=== PATIENT | male | born 1965 | race Caucasian/White ===

== ENCOUNTER 2023-10-05 14:56 | Observation (INO) ==
--- NOTE | 2023-10-05 15:11 | Emergency Department Note ---
Impression & Plan Near syncope, Dizziness, Acute hyperglycemia, Anemia, Elevated lactic acid level ED Provider Note NAME: DONNA RILEY AGE: 58 SEX: U : 1965 ARRIVES VIA: Walk-In INFORMANT: [Patient] ED PROVIDER(S): [Jamarcus Alvarado MD] CHIEF COMPLAINT: Near syncope, hyperglycemia HISTORY OF PRESENT ILLNESS: The patient is a 58-year-old male with diabetes. He has had a few days of cough and congestion and blood sugar readings that have been high. He has noticed some increased thirst and some increased urination. No fever. There has been no vomiting or diarrhea. The patient is in this area visiting someone admitted to this hospital. Patient is from [place]. A code purple was called as the patient was dizzy, lightheaded and complaining of some right upper chest pain. He felt like he might faint although there was no loss of consciousness. He describes the chest pain in the right upper chest underneath the collarbone. The patient was brought from the floor to this ER because of the complaints. PMHx/PSHx/Social Hx: See Below PHYSICAL EXAM: GENERAL: Patient is in no acute distress. HEENT: No acute trauma, normocephalic atraumatic, mucous membranes moist, no nasal congestion. NECK: No stridor, no adenopathy, no meningismus, trachea is midline. LUNGS: Clear to auscultation bilaterally, no wheeze, no rhonchi, breath sounds equal. Breath sounds are diminished bilaterally. HEART: Without murmurs gallops or rubs, regular rate and rhythm. ABDOMEN: Soft, nontender, no peritonitis. EXTREMITIES: No cyanosis, full range of motion of all the joints without pain or difficulty. NEUROLOGIC: Oriented x 3, no acute motor or sensory deficits, no focal weakness. SKIN: No jaundice, no diaphoresis. Rectal: Brown stool, heme-negative. DIFFERENTIAL DIAGNOSIS: Electrolyte imbalance, hyperglycemia, dehydration, UTI, dysrhythmia, MS, anemia, viral illness, among others. EMERGENCY DEPARTMENT PROCEDURES: MEDICAL DECISION MAKING: There is no leukocytosis. The patient is anemic with a hemoglobin of 8.7. I have no old values to use for comparison. Rectal exam was performed, stool was brown and heme-negative. There was a normal platelet count. VBG did not show any findings of acidosis. Renal panel testing did not show renal failure however, the glucose was high at over 400. Lactic acid level was elevated at 2.4, this elevation could be secondary to dehydration or potentially infection. No findings of liver enzyme elevation. The patient appeared to be in a euthyroid state. ECG showed a sinus rhythm with a right bundle branch block. No obvious ischemia. Cardiac enzyme testing x 1 is not consistent with acute cardiac injury. Urinalysis shows glucose, no obvious infection. COVID, influenza and RSV test were negative. Chest x-ray did not show pneumonia or CHF. On exam, the patient was resting comfortably, he did not appear in distress. The patient received IV insulin, 8 units. He was given 2 L of IV saline for hydration. A repeat troponin and repeat lactic acid are pending. A repeat glucose is pending. Currently, it appears the patient was near syncopal and dizzy secondary to dehydration, hyperglycemia and anemia. Certainly, dysrhythmia is a consideration as well. Given the patient's findings, given his presentation, I do think a hospital stay for further workup/care and cardiac monitoring is warranted. I spoke with the patient and case management, the on-call hospitalist was consulted. Prior/Outside records/notes reviewed: None ECG per my interpretation: Indication was near syncope. The ECG shows a sinus rhythm with a PVC. There is a right bundle branch block. The rate is 63. There is no concerning ST elevation, no PVCs. The QTc is 464. Continuous Cardiac Monitoring per my interpretation: An order was placed for continuous cardiac monitoring. The monitor shows a rate of 66 with normal sinus rhythm. Imaging/x-ray results per my interpretation: Chest x-ray does not show mediastinal widening, pneumonia or pneumothorax. Chronic Medical/Social conditions affecting care: Diabetes Care/Management discussed with: Level of care consideration(s): After review of the information above and other included data: --I believe the patient requires escalation of care to admission DISPOSITION: Admission Past Med/Surg History Medical History Diabetes mellitus Social History Smoking Status: Never smoker Feels Safe at Home: Yes Allergies Allergies Allergy/AdvReac Type Severity Reaction Status Date / Time No Known Allergies Allergy Unverified 10/05/23 16:51 Home Meds Home Medications Medication Instructions Recorded Confirmed apixaban 5 mg tablet (Eliquis) 5 mg PO BID 10/05/23 10/05/23 aspirin 81 mg chewable tablet 81 mg PO QAM 10/05/23 10/05/23 atorvastatin 40 mg tablet 40 mg PO HS 10/05/23 10/05/23 famotidine 20 mg tablet 20 mg PO HS 10/05/23 10/05/23 gabapentin 100 mg capsule 200 mg PO TID 10/05/23 10/05/23 insulin glargine 100 unit/mL (3 See Rx Instructions .Route .COMPLEX 10/05/23 10/05/23 mL) subcutaneous pen (Lantus Solostar U-100 Insulin) insulin lispro 100 unit/mL 12 unit subcut TID 10/05/23 10/05/23 subcutaneous pen levothyroxine 75 mcg tablet 75 mcg PO QAM 10/05/23 10/05/23 lisinopril 5 mg tablet 5 mg PO QAM 10/05/23 10/05/23 metformin 500 mg tablet,extended 1,000 mg PO BID 10/05/23 10/05/23 release 24 hr metoclopramide HCl 5 mg tablet 5 mg PO QID 10/05/23 10/05/23 pantoprazole 40 mg tablet,delayed 40 mg PO QAM 10/05/23 10/05/23 release sertraline 25 mg tablet 25 mg PO QAM 10/05/23 10/05/23 tamsulosin 0.4 mg capsule 0.4 mg PO DAILY 10/05/23 10/05/23 Results & Data (ED) Vital Signs Vital Signs - 24 hr 10/05/23 14:59 10/05/23 14:59 10/05/23 15:02 Temperature 37.1 C 37.1 C Temperature Source Oral Oral Pulse Rate 69 65 Pulse Rate [Apical] 66 Pulse Rate from SpO2 Sensor 66 Respiratory Rate 16 17 15 Blood Pressure 149/88 Blood Pressure [Right Arm] 149/88 Blood Pressure Mean 108 Blood Pressure Mean [Right Arm] 108 Pulse Oximetry 98 97 96 Oxygen Delivery Method Room Air Room Air Sepsis Recent Fever Within 48 Hours No Sepsis New/Unexplained Change in Mental Status No Sepsis Action Taken by Nursing No Action Required 10/05/23 15:13 10/05/23 15:30 10/05/23 16:00 Temperature Temperature Source Pulse Rate 72 83 69 Pulse Rate [Apical] Pulse Rate from SpO2 Sensor 82 70 Respiratory Rate 18 22 21 Blood Pressure Blood Pressure [Right Arm] Blood Pressure Mean Blood Pressure Mean [Right Arm] Pulse Oximetry 95 94 94 Oxygen Delivery Method Room Air Sepsis Recent Fever Within 48 Hours Sepsis New/Unexplained Change in Mental Status Sepsis Action Taken by Nursing 10/05/23 16:02 10/05/23 16:30 10/05/23 16:40 Temperature Temperature Source Pulse Rate 77 67 75 Pulse Rate [Apical] Pulse Rate from SpO2 Sensor 69 68 Respiratory Rate 24 21 Blood Pressure Blood Pressure [Right Arm] Blood Pressure Mean Blood Pressure Mean [Right Arm] Pulse Oximetry 96 96 Oxygen Delivery Method Sepsis Recent Fever Within 48 Hours Sepsis New/Unexplained Change in Mental Status Sepsis Action Taken by Nursing 10/05/23 16:40 10/05/23 17:00 10/05/23 17:00 Temperature Temperature Source Pulse Rate 70 Pulse Rate [Apical] Pulse Rate from SpO2 Sensor 70 Respiratory Rate 18 Blood Pressure 160/86 158/85 Blood Pressure [Right Arm] Blood Pressure Mean 126 108 Blood Pressure Mean [Right Arm] Pulse Oximetry 96 Oxygen Delivery Method Sepsis Recent Fever Within 48 Hours Sepsis New/Unexplained Change in Mental Status Sepsis Action Taken by [facility] Medications Current Medication List: was personally reviewed by me Laboratory Data Attestation: I reviewed the patient's lab results. 10/05/23 15:23 10/05/23 15:23 Lab Results 10/05/23 10/05/23 10/05/23 Range/Units 15:11 15:23 15:32 WBC 5.11 (4.8-10.8) K/ul RBC 3.97 L (4.20-6.10) M/uL Hgb 8.7 L (12.0-18.0) g/dl Hct 29.6 L (37.0-52.0) % MCV 74.6 L (80.0-100.0) fL MCH 21.9 L (25.0-34.0) pg MCHC 29.4 L (32.0-36.0) g/dL RDW Std Deviation 51.3 H (36.4-46.3) fL RDW Coeff of Bernadette 19.1 H (11.5-14.5) % Plt Count 145 (130-400) K/uL Immature Gran % (Auto) 0.0 % Neut % (Auto) 45.4 % Lymph % (Auto) 42.3 % Sanborn % (Auto) 7.0 % Eos % (Auto) 4.7 % Baso % (Auto) 0.6 % Neut # (Auto) 2.32 (1.40-6.50) K/uL Lymph # (Auto) 2.16 (1.20-3.40) K/uL Sanborn # (Auto) 0.36 (0.11-0.59) K/uL Eos # (Auto) 0.24 (0.00-0.50) K/uL Baso # (Auto) 0.03 (0.00-0.20) K/uL Immature Gran # (Auto) 0.00 L (0.01-0.20) K/uL VBG pH 7.37 (7.36-7.41) VBG pCO2 41 (38-50) mmHg VBG pO2 44 mmHg VBG HCO3 24 mmol/L VBG O2 Saturation 71.9 % VBG Base Excess -1.5 mEq/L Sodium 134 L (136-145) mmol/L Potassium 4.1 (3.5-5.1) mmol/L Chloride 103 (98-107) mmol/L Carbon Dioxide 23 (21-32) mmol/L Anion Gap 8 (3-11) BUN 21 (6-23) mg/dl Creatinine 1.06 (0.6-1.4) mg/dl Est Cr Clr Drug Dosing Not Reportable Est GFR ( Amer) 88.0 ml/min Est GFR (Non-Af Amer) 75.9 ml/min BUN/Creatinine Ratio 19.8 (10-20) Glucose 406 H* (70-99(Fasting)) mg/dl POC Glucose (70-99) mg/dl Lactate 2.4 H* (0.4-2.0) mmol/L Calcium 9.1 (8.6-10.3) mg/dl Magnesium 1.7 (1.7-2.4) mg/dl Total Bilirubin 0.3 (0.2-1.0) mg/dl AST 13 (13-39) U/L ALT 12 (7-52) U/L Alkaline Phosphatase 80 (34-104) U/L Troponin I High Sens 5.9 (0-20) pg/ml Total Protein 7.4 (6.0-8.3) gm/dl Albumin 4.0 (3.4-5.0) gm/dl Globulin 3.4 (2.5-4.0) gm/dl Albumin/Globulin Ratio 1.2 (0.9-2) TSH 3.944 (0.300-4.500) uIu/ml Urine Color Yellow Urine Appearance Clear (Clear) Urine pH 5.5 (4.5-7.5) Ur Specific Semora 1.031 H (1.000-1.030) Urine Protein Negative (Negative) Urine Glucose (UA) 3+ H (Negative) Urine Ketones Negative (Negative) Urine Blood Negative (Negative) Urine Nitrite Negative (Negative) Urine Bilirubin Negative (Negative) Urine Urobilinogen Negative (Negative) Ur Leukocyte Esterase Negative (Negative) SARS-CoV-2 (PCR) NEGATIVE (Negative) Influenza Type A (PCR) Negative (Neg) Influenza Type B (PCR) Negative (Neg) RSV (RT-PCR) Negative (Neg) 10/05/23 Range/Units 16:36 WBC (4.8-10.8) K/ul RBC (4.20-6.10) M/uL Hgb (12.0-18.0) g/dl Hct (37.0-52.0) % MCV (80.0-100.0) fL MCH (25.0-34.0) pg MCHC (32.0-36.0) g/dL RDW Std Deviation (36.4-46.3) fL RDW Coeff of Bernadette (11.5-14.5) % Plt Count (130-400) K/uL Immature Gran % (Auto) % Neut % (Auto) % Lymph % (Auto) % Sanborn % (Auto) % Eos % (Auto) % Baso % (Auto) % Neut # (Auto) (1.40-6.50) K/uL Lymph # (Auto) (1.20-3.40) K/uL Sanborn # (Auto) (0.11-0.59) K/uL Eos # (Auto) (0.00-0.50) K/uL Baso # (Auto) (0.00-0.20) K/uL Immature Gran # (Auto) (0.01-0.20) K/uL VBG pH (7.36-7.41) VBG pCO2 (38-50) mmHg VBG pO2 mmHg VBG HCO3 mmol/L VBG O2 Saturation % VBG Base Excess mEq/L Sodium (136-145) mmol/L Potassium (3.5-5.1) mmol/L Chloride (98-107) mmol/L Carbon Dioxide (21-32) mmol/L Anion Gap (3-11) BUN (6-23) mg/dl Creatinine (0.6-1.4) mg/dl Est Cr Clr Drug Dosing Est GFR ( Amer) ml/min Est GFR (Non-Af Amer) ml/min BUN/Creatinine Ratio (10-20) Glucose (70-99(Fasting)) mg/dl POC Glucose 420 H* (70-99) mg/dl Lactate (0.4-2.0) mmol/L Calcium (8.6-10.3) mg/dl Magnesium (1.7-2.4) mg/dl Total Bilirubin (0.2-1.0) mg/dl AST (13-39) U/L ALT (7-52) U/L Alkaline Phosphatase (34-104) U/L Troponin I High Sens (0-20) pg/ml Total Protein (6.0-8.3) gm/dl Albumin (3.4-5.0) gm/dl Globulin (2.5-4.0) gm/dl Albumin/Globulin Ratio (0.9-2) TSH (0.300-4.500) uIu/ml Urine Color Urine Appearance (Clear) Urine pH (4.5-7.5) Ur Specific Sem[place] (1.000-1.030) Urine Protein (Negative) Urine Glucose (UA) (Negative) Urine Ketones (Negative) Urine Blood (Negative) Urine Nitrite (Negative) Urine Bilirubin (Negative) Urine Urobilinogen (Negative) Ur Leukocyte Esterase (Negative) SARS-CoV-2 (PCR) (Negative) Influenza Type A (PCR) (Neg) Influenza Type B (PCR) (Neg) RSV (RT-PCR) (Neg) Administered Medications Discontinued Medications Sodium Chloride (Nss) 1,000 mls @ 999 mls/hr IV .Q1H1M ALIRIO Stop: 10/05/23 16:15 Last Infusion: 10/05/23 16:45 Dose: Infused Documented By: Admin: 10/05/23 15:30 Dose: 999 mls/hr Documented By: DARÍO Sodium Chloride (Nss) 1,000 mls @ 999 mls/hr IV .Q1H1M ONE Stop: 10/05/23 16:52 Last Admin: 10/05/23 16:36 Dose: 999 mls/hr Documented By: RUMA Insulin Human Regular (Novolin-R Insulin Per Unit Charge) 8 units IV NOW STA Stop: 10/05/23 16:17 Last Admin: 10/05/23 16:37 Dose: 8 units Documented By: RUMA Co-signed By: DARÍO Imaging Data Radiologist's Impression: Chest X-Ray 10/05/23 15:05 XR chest 1V portable CLINICAL HISTORY: weakness COMPARISON STUDY: No previous studies for comparison. FINDINGS: Lung volumes are normal. Lungs are clear. There is no pneumothorax or pleural effusion. Cardiac size is normal. Mediastinal contours are normal. There is no evidence for pulmonary edema. IMPRESSION: No acute cardiopulmonary findings. ACT 112: Negative or not required by law. Electronically signed by: Hunter Keene M.D. 10/05/2023 3:55 PM Discharge Plan Visit Data Chief Complaint: Hyperglycemia Stated Complaint: CODE PURPLE ED Provider: Jamarcus Alvarado Discharge Problem: Near syncope, Dizziness, Acute hyperglycemia, Anemia, Elevated lactic acid level Patient Disposition: Admitted As Inpatient Condition: Fair Forms Stand Alone Forms: My [facility] Knowledge Factor Prescriptions Prescriptions: No Action atorvastatin 40 mg tablet 40 mg PO HS levothyroxine 75 mcg tablet 75 mcg PO QAM famotidine 20 mg tablet 20 mg PO HS metoclopramide HCl 5 mg tablet 5 mg PO QID tamsulosin 0.4 mg capsule 0.4 mg PO DAILY pantoprazole 40 mg tablet,delayed release (DR/EC) 40 mg PO QAM sertraline 25 mg tablet 25 mg PO QAM aspirin 81 mg tablet,chewable 81 mg PO QAM lisinopril 5 mg tablet 5 mg PO QAM gabapentin 100 mg capsule 200 mg PO TID metformin 500 mg tablet extended release 24 hr 1,000 mg PO BID insulin lispro 100 unit/mL insulin pen 12 unit SUBCUT TID Rx Instructions: Before meals, if skipping a meal please skip that dose insulin glargine [Lantus Solostar U-100 Insulin] 100 unit/mL (3 mL) insulin pen See Rx Instructions .ROUTE .COMPLEX Rx Instructions: INJECT 25 units SUBCUTANEOUSLY IN THE MORNING and INJECT 45 Units SUBCUTANEOUSLY AT BEDTIME Eliquis 5 mg tablet 5 mg PO BID Referrals Referrals: PCP,NO [Primary Care Provider] - Discharge Problem: Anemia Qualifiers: Anemia type: unspecified type Qualified Code(s): D64.9 - Anemia, unspecified
[2023-10-05] MEDS: SODIUM CHLORIDE 0.9% 1,000 ML IV SCH ×2 (15:30→21:11)
[2023-10-05 15:42] LABS: Base Excess VBG -1.5 mEq/L; HCO3 VBG 24 mmol/L; Oxygen Saturation VBG 71.9 %; PCO2 VBG 41 mmHg (38-50); PO2 VBG 44 mmHg; pH VBG 7.37 (7.36-7.41)
[2023-10-05 15:44] LABS: Appearance Urine Clear (Clear); Bilirubin Urine Negative (Negative); Blood Urine Negative (Negative); Color Urine Yellow; Glucose Urine UA 3+ (Negative); Ketones Urine Negative (Negative); Leukocyte Esterase Urine Negative (Negative); Nitrite Urine Negative (Negative); Protein Urine Negative (Negative); Specific Gravity Urine 1.031 (1.000-1.030); Urobilinogen Urine Negative (Negative); pH Urine 5.5 (4.5-7.5)
[2023-10-05 15:56] LABS: Basophils # (auto) 0.03 K/uL (0.00-0.20); Basophils % (auto) 0.6 %; Eosinophils # (auto) 0.24 K/uL (0.00-0.50); Eosinophils % (auto) 4.7 %; Hematocrit (blood only) 29.6 % (37.0-52.0); Hemoglobin 8.7 g/dl (12.0-18.0); Lymphocytes # (auto) 2.16 K/uL (1.20-3.40); Lymphocytes % (auto) 42.3 %; Mean Corpuscular Hemoglobin 21.9 pg (25.0-34.0); Mean Corpuscular Hgb Conc 29.4 g/dL (32.0-36.0); Mean Corpuscular Volume 74.6 fL (80.0-100.0); Monocytes # (auto) 0.36 K/uL (0.11-0.59); Neutrophils # (auto) 2.32 K/uL (1.40-6.50); Neutrophils % (auto) 45.4 %; Platelet Count 145 K/uL (130-400); RDW Coefficient of Variation 19.1 % (11.5-14.5); RDW Standard Deviation 51.3 fL (36.4-46.3); Red Blood Count 3.97 M/uL (4.20-6.10); White Blood Count 5.11 K/ul (4.8-10.8)
--- NOTE | 2023-10-05 15:56 | XRay Report ---
XR chest 1V portable CLINICAL HISTORY: weakness COMPARISON STUDY: No previous studies for comparison. FINDINGS: Lung volumes are normal. Lungs are clear. There is no pneumothorax or pleural effusion. Car diac size is normal. Mediastinal contours are normal. There is no evidence for pulmonary edema. IMPRESSION: No acute cardiopulmonary findings. ACT 112: Negative or not required by law. Electronically signed by: Hunter Keene M.D. 10/05/2023 3:55 PM
[2023-10-05 16:20] LABS: Influenza A virus by PCR Negative (Neg); Influenza B virus by PCR Negative (Neg); RSV by PCR Negative (Neg); SARS CoV2 RNA(COVID-19) Ceph NEGATIVE (Negative)
[2023-10-05 16:30] LABS: Alanine Aminotransferase 12 U/L (7-52); Albumin Globulin Ratio 1.2 (0.9-2); Alkaline Phosphatase 80 U/L (34-104); Anion Gap 8 (3-11); Aspartate Aminotransferase 13 U/L (13-39); BUN Creatinine Ratio 19.8 (10-20); Bilirubin,Total 0.3 mg/dl (0.2-1.0); Blood Urea Nitrogen 21 mg/dl (6-23); Calcium 9.1 mg/dl (8.6-10.3); Carbon Dioxide 23 mmol/L (21-32); Chloride 103 mmol/L (98-107); Est GFR (Non-African American) 75.9 ml/min; Globulin 3.4 gm/dl (2.5-4.0); Glucose 406 mg/dl (70-99(Fasting)); Magnesium 1.7 mg/dl (1.7-2.4); Potassium 4.1 mmol/L (3.5-5.1); Sodium 134 mmol/L (136-145); Thyroid Stimulating Hormone 3.944 uIu/ml (0.300-4.500); Total Protein 7.4 gm/dl (6.0-8.3); Troponin I High Sensitivity 5.9 pg/ml (0-20)
[2023-10-05] MEDS: SODIUM CHLORIDE 0.9% 1,000 ML IV ONE (16:36)
[2023-10-05] MEDS: NovoLIN-R INSULIN PER UNIT CHARGE IV STA (16:37)
--- NOTE | 2023-10-05 18:00 | History & Physical Report ---
Date of Service October 05, 2023 Assessment & Plan (1) Acute hyperglycemia: Plan: This is a 58 y/o male with insulin-requiring DM2, dyslipidemia, hx of PE, now on chronic AC, anemia, hypothyroidism, GERD, BPH, adjustment disorder w/ depression, and other history as outlined below who presented to the ED today after a code purple was called on the floor. Initial work-up in the ED showed hyperglycemia, elevated lactate, and anemia. Outpatient records extensively reviewed - pt with multiple ED visits for hyperglycemia and various traumatic injuries in 2022 (>30 per outpatient records). Pt has a history of non- compliance with medications and was unable to remember his prescribed insulin regimen other than the Lantus. - Observe on med telemetry overnight - Basal/bolus insulin - A1c in AM (2) Near syncope: Plan: Suspect due to dehydration, hyperglycemia, and anemia but will evaluate for potential cardiac etiology. Trop x 2 negative. Last ECHO from outpatient records appears to be from 2019 and showed LVEF 55% - Will monitor on telemetry overnight - Repeat EKG in the AM - Update ECHO (3) Elevated lactic acid level: Plan: Improved on repeat labs - Continue IVF hydration - Holding Metformin (4) Anemia: Plan: Appears to be a chronic issue from review of chart although H&H has been slowly downtrending Will need outpatient follow-up for this - Labs in the AM to include repeat CBC, iron studies, B12, folic acid, retic count (5) Insulin-requiring or dependent type II diabetes mellitus: Plan: Last A1c from 04/21/23 was 14.2. Last visit with glycemic pharmacist, pt was prescribed Metformin ER 500 mg two tab BID, Lantus 25 units BID, and Humalog 25 units before each meal - Diabetic diet - Basal insulin per home regimen - Insulin sliding scale - A1c in the AM - Holding Metformin due to dehydration/elevated lactate (6) History of pulmonary embolus (PE): Plan: Pt denies any evidence of gross bleeding. Anemia appears to be a chronic issue per review of records - Continue apixaban due to history of PE (7) BPH loc w urin obs/LUTS: Plan: Chronic, stable - Continue tamsulosin (8) Dyslipidemia: Plan: Chronic, stable - Continue atorvastatin (9) Essential hypertension: Plan: BP in the ED elevated but suspect component of anxiety contributing as pt was very anxious and tearful - Continue lisinopril (10) Hypothyroidism: Plan: Chronic, TSH 3.944 today - Continue levothyroxine Plan Pt seen and reviewed with collaborating physician, Dr. Lee. Plan of care discussed and as outlined above. Code Status: full code DVT Prophylaxis: on chronic apixaban Asa Molina PA-C History of Present Illness Chief Complaint: near-syncope Primary Care Provider: NO PCP This is a 58 y/o male with insulin-requiring DM2, dyslipidemia, hx of PE, now on chronic AC, anemia, hypothyroidism, GERD, BPH, adjustment disorder w/ depression, and other history as outlined below who presented to the ED today after a code purple was called on the floor. Pt was visiting his sister when he apparently became very light-headed and had some right-sided chest pain. He was brought to the ED and found to be hyperglycemic with glucose >400. His chest pain has resolved, troponin x 2 was negative. Lactate was elevated, and pt clinically appeared dry so he was given two liters of IVF. Given 8 units of IV insulin, repeat sugar was 313. Pt's family report to the ED provider that pt has a history of medical non-compliance and that they aren't sure if patient is taking the insulin as prescribed. Due to the near-syncope, hyperglycemia, and dehydration, pt was referred for observation overnight. Pt reports that he is taking Lantus 25 units BID and is taking insulin with meals but unsure what dosing. He denies recent illness. Review of his outpatient records including PCP notes, multiple ED visit, and recent urgent care visit show ongoing issues with hyperglycemia, dizziness, and anemia. He does follow with glycemic pharmacist but there are some concerns about his compliance with recommendations. Last A1c in chart was from 04/21/23 and was 14.2. However, pt reports sugars usually only in the 200s at max. He has had lightheadedness with prior episodes of hyperglycemia. Allergies Allergy/AdvReac Type Severity Reaction Status Date / Time bee venom protein (honey bee) Allergy Difficulty Verified 10/05/23 17:50 Breathing Home Medications Medication Instructions Recorded Confirmed Type apixaban 5 mg tablet (Eliquis) 5 mg PO BID 10/05/23 10/05/23 History aspirin 81 mg chewable tablet 81 mg PO QAM 10/05/23 10/05/23 History atorvastatin 40 mg tablet 40 mg PO HS 10/05/23 10/05/23 History famotidine 20 mg tablet 20 mg PO HS 10/05/23 10/05/23 History gabapentin 100 mg capsule 200 mg PO TID 10/05/23 10/05/23 History insulin glargine 100 unit/mL (3 25 unit subcut BID 10/05/23 10/05/23 History mL) subcutaneous pen (Lantus Solostar U-100 Insulin) insulin lispro 100 unit/mL 20 unit subcut TID 10/05/23 10/05/23 History subcutaneous pen levothyroxine 75 mcg tablet 75 mcg PO QAM 10/05/23 10/05/23 History lisinopril 5 mg tablet 5 mg PO QAM 10/05/23 10/05/23 History metformin 500 mg tablet,extended 1,000 mg PO BID 10/05/23 10/05/23 History release 24 hr metoclopramide HCl 5 mg tablet 5 mg PO QID 10/05/23 10/05/23 History pantoprazole 40 mg tablet,delayed 40 mg PO QAM 10/05/23 10/05/23 History release sertraline 25 mg tablet 25 mg PO QAM 10/05/23 10/05/23 History tamsulosin 0.4 mg capsule 0.4 mg PO DAILY 10/05/23 10/05/23 History Past Med/Surg History Medical History (Updated 10/05/23 @ 19:14 by Mara Molina PA-C) History of pulmonary embolus (PE) GERD without esophagitis Adjustment disorder with depressed mood Atherosclerosis of [place] coronary artery Basic learning disability Dyslipidemia BPH loc w urin obs/LUTS Essential hypertension Gastroparesis due to DM Hypothyroidism Diabetes mellitus Surgical History S/P right inguinal hernia repair S/P cholecystectomy Family History Other Diabetes Heart disease Social History (System 10/05/23 @ 17:50 by Tsering Montelongo) Smoking Status: Never smoker Feels Safe at Home: Yes Review of Systems Review of Systems: All systems reviewed & are unremarkable except as noted in HPI & below Constitutional: no fever and no chills Eyes: no diplopia Ear, Nose, Mouth, Throat: no nasal congestion and no sore throat Respiratory: no cough and no dyspnea Cardiovascular: as per Subjective / HPI Gastrointestinal: no vomiting, no diarrhea/loose stools and no blood in stools Genitourinary: no dysuria or no hematuria Integumentary: no yellowing of the skin Neurologic: as per Subjective / HPI Psychiatric: + anxiety Physical Exam Physical Exam: General: awake, alert, NAD but tearful and anxious during encounter HEENT: no scleral icterus, moist oral mucosa Neck: trachea midline Heart: RRR, no M/G/R Lungs: CTA bilaterally, no W/R/R Abdomen: soft, NT, +BS Extremites: no pedal edema, distal pulses intact and equal Skin: +healed scar in RLQ without tenderness or erythema Neuro: Ox3, moving all extremities, no focal deficits Results & Data Results & Data Vital Signs (Past 12 Hours) Vital Signs Temp Pulse Pulse Resp BP BP Pulse Ox 10/05/23 17:00 158/85 10/05/23 17:00 70 18 96 10/05/23 16:40 160/86 10/05/23 16:40 75 21 96 10/05/23 16:30 67 24 96 10/05/23 16:02 77 10/05/23 16:00 69 21 94 10/05/23 15:30 83 22 94 10/05/23 15:13 72 18 95 10/05/23 15:02 65 15 96 10/05/23 14:59 37.1 C 66 17 149/88 97 10/05/23 14:59 37.1 C 69 16 149/88 98 O2 Del Method 10/05/23 17:00 10/05/23 17:00 10/05/23 16:40 10/05/23 16:40 10/05/23 16:30 10/05/23 16:02 10/05/23 16:00 10/05/23 15:30 10/05/23 15:13 Room Air 10/05/23 15:02 10/05/23 14:59 Room Air 10/05/23 14:59 Room Air Laboratory Results Laboratory Results - last 24 hr 10/05/23 10/05/23 10/05/23 15:11 15:23 15:32 WBC 5.11 RBC 3.97 L Hgb 8.7 L Hct 29.6 L MCV 74.6 L MCH 21.9 L MCHC 29.4 L RDW Std Deviation 51.3 H RDW Coeff of Bernadette 19.1 H Plt Count 145 Immature Gran % (Auto) 0.0 Neut % (Auto) 45.4 Lymph % (Auto) 42.3 Aurora % (Auto) 7.0 Eos % (Auto) 4.7 Baso % (Auto) 0.6 Neut # (Auto) 2.32 Lymph # (Auto) 2.16 Aurora # (Auto) 0.36 Eos # (Auto) 0.24 Baso # (Auto) 0.03 Immature Gran # (Auto) 0.00 L VBG pH 7.37 VBG pCO2 41 VBG pO2 44 VBG HCO3 24 VBG O2 Saturation 71.9 VBG Base Excess -1.5 Sodium 134 L Potassium 4.1 Chloride 103 Carbon Dioxide 23 Anion Gap 8 BUN 21 Creatinine 1.06 Est Cr Clr Drug Dosing Not Reportable Est GFR ( Amer) 88.0 Est GFR (Non-Af Amer) 75.9 BUN/Creatinine Ratio 19.8 Glucose 406 H* POC Glucose Lactate 2.4 H* Calcium 9.1 Magnesium 1.7 Total Bilirubin 0.3 AST 13 ALT 12 Alkaline Phosphatase 80 Troponin I High Sens 5.9 Total Protein 7.4 Albumin 4.0 Globulin 3.4 Albumin/Globulin Ratio 1.2 TSH 3.944 Urine Color Yellow Urine Appearance Clear Urine pH 5.5 Ur Specific [place] 1.031 H Urine Protein Negative Urine Glucose (UA) 3+ H Urine Ketones Negative Urine Blood Negative Urine Nitrite Negative Urine Bilirubin Negative Urine Urobilinogen Negative Ur Leukocyte Esterase Negative SARS-CoV-2 (PCR) NEGATIVE Influenza Type A (PCR) Negative Influenza Type B (PCR) Negative RSV (RT-PCR) Negative 10/05/23 10/05/23 10/05/23 16:36 17:21 17:24 WBC RBC Hgb Hct MCV MCH MCHC RDW Std Deviation RDW Coeff of Bernadette Plt Count Immature Gran % (Auto) Neut % (Auto) Lymph % (Auto) Aurora % (Auto) Eos % (Auto) Baso % (Auto) Neut # (Auto) Lymph # (Auto) Aurora # (Auto) Eos # (Auto) Baso # (Auto) Immature Gran # (Auto) VBG pH VBG pCO2 VBG pO2 VBG HCO3 VBG O2 Saturation VBG Base Excess Sodium Potassium Chloride Carbon Dioxide Anion Gap BUN Creatinine Est Cr Clr Drug Dosing Est GFR ( Amer) Est GFR (Non-Af Amer) BUN/Creatinine Ratio Glucose POC Glucose 420 H* 313 H* Lactate 2.1 H* Calcium Magnesium Total Bilirubin AST ALT Alkaline Phosphatase Troponin I High Sens 5.7 Total Protein Albumin Globulin Albumin/Globulin Ratio TSH Urine Color Urine Appearance Urine pH Ur Specific [place] Urine Protein Urine Glucose (UA) Urine Ketones Urine Blood Urine Nitrite Urine Bilirubin Urine Urobilinogen Ur Leukocyte Esterase SARS-CoV-2 (PCR) Influenza Type A (PCR) Influenza Type B (PCR) RSV (RT-PCR) Diagnostic Findings Chest X-Ray 10/05/23 15:05 XR chest 1V portable CLINICAL HISTORY: weakness COMPARISON STUDY: No previous studies for comparison. FINDINGS: Lung volumes are normal. Lungs are clear. There is no pneumothorax or pleural effusion. Cardiac size is normal. Mediastinal contours are normal. There is no evidence for pulmonary edema. IMPRESSION: No acute cardiopulmonary findings. ACT 112: Negative or not required by law. Electronically signed by: Hunter Keene M.D. 10/05/2023 3:55 PM Medications Administered Discontinued Medications Sodium Chloride (Nss) 1,000 mls @ 999 mls/hr IV .Q1H1M ALIRIO Stop: 10/05/23 16:15 Last Infusion: 10/05/23 16:45 Dose: Infused Documented By: Admin: 10/05/23 15:30 Dose: 999 mls/hr Documented By: DARÍO Sodium Chloride (Nss) 1,000 mls @ 999 mls/hr IV .Q1H1M ONE Stop: 10/05/23 16:52 Last Infusion: 10/05/23 17:54 Dose: Infused Documented By: Admin: 10/05/23 16:36 Dose: 999 mls/hr Documented By: RUMA Insulin Human Regular (Novolin-R Insulin Per Unit Charge) 8 units IV NOW STA Stop: 10/05/23 16:17 Last Admin: 10/05/23 16:37 Dose: 8 units Documented By: RUMA Co-signed By: DARÍO Supervising Physician Co-Signing Physician Notes I have seen and examined the patient and have discussed the case with the provider above. I have reviewed the advanced practitioner's documentation, and I agree with, and take responsibility for that plan of care. 58-year-old man with insulin-dependent diabetes presents with hyperglycemia and lightheadedness. Per history noted above he was visiting his sister who was hospitalized and became lightheaded with right-sided chest pain. Glucose is elevated into the 400s. Workup for ACS was negative and chest pain resolved. The patient reports that he feels stressed because of his sisters situation. He is now also stressed because he does not have a ride back home. He lives in the [facility] region around [facility]. Insulin was administered as noted above. Additional workup for presyncope including echo was ordered. On exam he is well-nourished well-developed and in no acute distress. BP is 164/106 pulse 63 respiration 26 and temp is 37.1. He is oxygenating well on room air. Lungs are clear to auscultation bilaterally. Cardiac exam is normal. He is mentating normally and has no gross focal neuromuscular deficits. Lab work does reveal a persistent and dropping H&H. Per outpatient record review he had a normal hemoglobin in April 2023 which began to drop from 12.9 baseline to then just above 9 and hemoglobin is now 8.7. He denies any active bleeding but has multiple visits to the ER is for laceration repairs. Patient's diabetes is uncontrolled. He has glucosuria on dipstick. No evidence of sepsis. He is on metformin and insulin at home. Agree with plan for lab workup of anemia in the morning continuing IV fluid hydration given elevated lactate and hyperglycemia and concentrated urine as well as echocardiogram and monitoring on telemetry overnight for presyncope. DO Jesus (4) Anemia Anemia type: unspecified type Qualified Code(s): D64.9 - Anemia, unspecified (10) Hypothyroidism Hypothyroidism type: acquired Qualified Code(s): E03.9 - Hypothyroidism, unspecified
[2023-10-05] MEDS ORDERED: CARBOHYDRATES FOR HYPOGLYCEMIA PO PRN (21:28)
[2023-10-05] MEDS ORDERED: GLUCOSE 40% GEL 15 GM TUBE PO PRN (21:28)
[2023-10-05] MEDS ORDERED: DEXTROSE 50% 50 ML SYRINGE IV PRN (21:28)
[2023-10-05] MEDS ORDERED: GLUCAGON FOR INJ 1 MG VIAL SQ PRN (21:28)
[2023-10-05] MEDS ORDERED: GLUCOSE 10 TAB/TUBE PO PRN (21:28)
--- OUTSIDE RECORDS SUMMARY | 2023-10-05 21:34 | External Medical Summary ---
Author Name Unknown Address Unknown Organization [id number]:[facility] [place] [address] [facility] [address] Laboratory Report Ordering Provider Test Date Status ABDIRAHMAN CHIN 06/07/2023 19:30:00 Final Observation Date Value Abnormality Reference (Units ) Status SYNC LEUKOCYTES IN BLOOD BY AUTOMATED COUNT 06/07/2023 19:30:00 6.18 4.00-10.80 (K/uL) Final Segs 06/07/2023 19:30:00 36.6 Below low normal 40.0-75.0 (%) Final Lymphs % 06/07/2023 19:30:00 47.6 Above high normal 18.0-42.0 (%) Final Monos 06/07/2023 19:30:00 8.9 1.0-11.0 (%) Final Eosinophils 06/07/2023 19:30:00 6.1 Above high normal 0.0-6.0 (%) Final Basos 06/07/2023 19:30:00 0.6 0.0-2.0 (%) Final Immature Granulocyte, Percent 06/07/2023 19:30:00 0.2 0.0-2.0 (%) Final Absolute Segs 06/07/2023 19:30:00 2.26 1.80-7.70 (K/uL) Final Lymphs, absolute 06/07/2023 19:30:00 2.94 1.00-4.80 (K/ul) Final Monos, Abs 06/07/2023 19:30:00 0.55 0.00-1.10 (K/uL) Final Eos, Abs 06/07/2023 19:30:00 0.38 0.00-0.70 (K/uL) Final Basos, Abs 06/07/2023 19:30:00 0.04 0.00-0.20 (K/uL) Final Immature Granulocytes, Number 06/07/2023 19:30:00 0.01 0.00-0.20 (K/uL) Final Performing Location [facility] [place] [facility] [place] [address]
--- OUTSIDE RECORDS SUMMARY | 2023-10-05 21:34 | External Medical Summary ---
Author Name Unknown Address Unknown Organization K0N:[place] [address] Laboratory Report Ordering Provider Test Date Status MEGAN HEALY 07/02/2023 14:04:16 Final Observation Date Value Abnormality Reference (Units ) Status [facility] WHITE BLOOD CELL COUNT 07/02/2023 14:04:16 4.6 4.0-10.5 (K/uL) Final [facility] RED BLOOD CELL COUNT 07/02/2023 14:04:16 3.40 Below low normal 4.70-6.00 Final Hemoglobin 07/02/2023 14:04:16 9.2 Below low normal 13.5-18 (g/dL) Final HCT 07/02/2023 14:04:16 28.1 Below low normal 42-52 (%) Final [facility] MEAN CORPUSCULAR VOLUME 07/02/2023 14:04:16 82.6 78.0-100.0 (fl) Final [facility] MCH 07/02/2023 14:04:16 27.0 27.0-31.0 (pg) Final [facility] MCHC 07/02/2023 14:04:16 32.7 32.5-36.0 (g/dL) Final [facility] RED CELL DIST WIDTH 07/02/2023 14:04:16 14.2 Above high normal 11.5-14.0 (%) Final [facility] PLATELET COUNT 07/02/2023 14:04:16 165 150-450 (K/uL) Final [facility] MPV 07/02/2023 14:04:16 10.0 Above high normal 6.5-9.5 (fL) [place] [address]
--- OUTSIDE RECORDS SUMMARY | 2023-10-05 21:34 | External Medical Summary ---
Author Name Unknown Address Unknown Organization [id number]:[facility] [place] [facility] [place] [address] [place] [address] Laboratory Report Ordering Provider Test Date Status ELSYABDIRAHMAN 06/07/2023 19:30:00 Final Observation Date Value Abnormality Reference (Units ) Status ABO 06/07/2023 19:30:00 O Final RH 06/07/2023 19:30:00 Positive Final RED BLOOD CELL ANTIBODY SCREEN 06/07/2023 19:30:00 Negative Final SPECIMEN EXPIRATION DATE 06/07/2023 19:30:00 06/10/2023 23:59 Final Performing Location [facility] [place] [facility] [place] [address] [address]
--- OUTSIDE RECORDS SUMMARY | 2023-10-05 21:34 | External Medical Summary ---
Author Name Unknown Address Unknown Organization : Laboratory Report Ordering Provider Test Date Status JENNIE CROWE 05/01/2023 11:48:53 Final Observation Date Value Abnormality Reference (Units ) Status Glucose Point of Care 05/01/2023 11:48:53 141 Above high normal 70-120 (mg/dL) Final Performing Location
--- OUTSIDE RECORDS SUMMARY | 2023-10-05 21:34 | External Medical Summary ---
Author Name Unknown Address Unknown Organization : Laboratory Report Ordering Provider Test Date Status JENNIE CROWE 05/02/2023 07:21:43 Final Observation Date Value Abnormality Reference (Units ) Status Glucose Point of Care 05/02/2023 07:21:43 274 Above high normal 70-120 (mg/dL) Final Performing Location
--- OUTSIDE RECORDS SUMMARY | 2023-10-05 21:34 | External Medical Summary ---
Author Name Unknown Address Unknown Organization : Laboratory Report Ordering Provider Test Date Status JENNIE CROWE 05/01/2023 07:45:35 Final Observation Date Value Abnormality Reference (Units ) Status Glucose Point of Care 05/01/2023 07:45:35 207 Above high normal 70-120 (mg/dL) Final Performing Location
--- OUTSIDE RECORDS SUMMARY | 2023-10-05 21:34 | External Medical Summary ---
Author Name Unknown Address Unknown Organization : Laboratory Report Ordering Provider Test Date Status JENNIE CROWE 04/29/2023 16:28:46 Final Observation Date Value Abnormality Reference (Units ) Status Glucose Point of Care 04/29/2023 16:28:46 180 Above high normal 70-120 (mg/dL) Final Performing Location
--- OUTSIDE RECORDS SUMMARY | 2023-10-05 21:34 | External Medical Summary ---
Author Name Unknown Address Unknown Organization K0N:[facility] [place] [address] Laboratory Report Ordering Provider Test Date Status MEGAN HEALY 07/02/2023 14:04:16 Final Observation Date Value Abnormality Reference (Units ) Status [facility] SODIUM 07/02/2023 14:04:16 137 135-146 (mmol/L) Final [facility] POTASSIUM 07/02/2023 14:04:16 4.4 3.5-5.1 (mmol/L) Final [facility] CHLORIDE 07/02/2023 14:04:16 101 98-107 (mmol/L) Final [facility] CO2 07/02/2023 14:04:16 21 Below low normal 22-32 (mmol/L) Final [facility] ANION GAP 07/02/2023 14:04:16 19 10-20 (mmol/L) Final [facility] BUN 07/02/2023 14:04:16 23 Above high normal 6-20 (mg/dL) Final [facility] CREATININE 07/02/2023 14:04:16 1.1 0.7-1.2 (mg/dL) Final [facility] ESTIMATED GLOMERULAR FILTRATION RATE 07/02/2023 14:04:16 77 Final [facility] BUN/CREATININE RATIO 07/02/2023 14:04:16 20.9 Above high normal 12.0-20.0 Final [facility] GLUCOSE 07/02/2023 14:04:16 496 Above upper panic limits 70-120 (mg/dL) Final [facility] CALCIUM 07/02/2023 14:04:16 9.7 8.4-10.2 (mg/dL) Final [facility] AST/SGOT 07/02/2023 14:04:16 14 10-50 (U/L) Final [facility] ALKALINE PHOSPHATASE 07/02/2023 14:04:16 84 50-153 (U/L) Final [facility] ALT/SGPT 07/02/2023 14:04:16 11 10-50 (U/L) Final [facility] BILIRUBIN, TOTAL 07/02/2023 14:04:16 0.30 0.00-1.20 (mg/dL) Final [facility] PROTEIN, TOTAL 07/02/2023 14:04:16 7.1 6.0-8.3 (g/dL) Final [facility] ALBUMIN 07/02/2023 14:04:16 3.9 3.8-5.0 (g/dL) Final [facility] GLOBULIN 07/02/2023 14:04:16 3.2 1.8-3.8 (g/dL) Final [facility] ALBUMIN/GLOBULIN RATIO 07/02/2023 14:04:16 1.2 1.0-2.4 [place] [address]
--- OUTSIDE RECORDS SUMMARY | 2023-10-05 21:34 | External Medical Summary ---
Author Name Unknown Address Unknown Organization K0X:LABORATORY [facility] - [address] [place] [address] [address] [place] [address] Laboratory Report Ordering Provider Test Date Status FLORENTINO ALCARAZ 08/09/2023 21:49:37 Final Observation Date Value Abnormality Reference (Units ) Status Color of Urine by Auto 08/09/2023 21:49:37 Yellow Light Yellow, Yellow, Dark Yellow Final Clarity, Urine 08/09/2023 21:49:37 Clear Clear Final Glucose [Mass/volume] in Urine by Automated test strip 08/09/2023 21:49:37 100 Abnormal Negative (mg/dL) Final Bilirubin.total [Presence] in Urine by Automated test strip 08/09/2023 21:49:37 Negative Negative Final Ketones [Mass/volume] in Urine by Automated test strip 08/09/2023 21:49:37 Negative Negative (mg/dL) Final Specific gravity, Urine 08/09/2023 21:49:37 1.023 1.003-1.030 Final Hemoglobin [Presence] in Urine by Automated test strip 08/09/2023 21:49:37 Negative Negative Final pH, Urine 08/09/2023 21:49:37 6.0 5.0-7.5 (Units) Final Protein [Mass/volume] in Urine by Automated test strip 08/09/2023 21:49:37 Negative Negative (mg/dL) Final Urobilinogen [Mass/volume] in Urine by Automated test strip 08/09/2023 21:49:37 0.2 0.2, 1.0 (mg/dL) Final Nitrite [Presence] in Urine by Automated test strip 08/09/2023 21:49:37 Negative Negative Final Leukocyte esterase [Presence] in Urine by Automated test strip 08/09/2023 21:49:37 Negative Negative Final RBC, Urine 08/09/2023 21:49:37 0-2 0-2 (/HPF) Final WBC, Urine 08/09/2023 21:49:37 0-2 0-2 (/HPF) Final Bacteria [#/area] in Urine sediment by Microscopy high power field 08/09/2023 21:49:37 0-25 0-25 (/HPF) Final CULTURE, URINE - [facility] 08/09/2023 21:49:37 Final Culture not indicated by uri nalysis results\[id number]\ Performing Location LAB[facility]ATORY [facility] - [address] [facility] [address]
--- OUTSIDE RECORDS SUMMARY | 2023-10-05 21:34 | External Medical Summary ---
Author Name Unknown Address Unknown Organization : Laboratory Report Ordering Provider Test Date Status JENNIE CROWE 04/30/2023 11:24:37 Final Observation Date Value Abnormality Reference (Units ) Status Glucose Point of Care 04/30/2023 11:24:37 199 Above high normal 70-120 (mg/dL) Final Performing Location
--- OUTSIDE RECORDS SUMMARY | 2023-10-05 21:34 | External Medical Summary ---
Author Name Unknown Address Unknown Organization K0X:LAB[facility]ATORY [facility] - [address] [place] [address] [address] [place] [address] Laboratory Report Ordering Provider Test Date Status FLORENTINO ALCARAZ 08/09/2023 20:45:00 Final Observation Date Value Abnormality Reference (Units ) Status BUN 08/09/2023 20:45:00 31 Above high normal 6-20 (mg/dL) Final Creatinine 08/09/2023 20:45:00 1.1 0.6-1.2 (mg/dL) Final Glomerular filtration rate/1.73 sq M.predicted [Volume Rate/Area] in Serum, Plasma or Blood by Creatinine-based formula (CKD-EPI) 08/09/2023 20:45:00 79 >=60 (mL/min) Final eGFR is calculated based on the CKD-EPI 2020 equation SODIUM 08/09/2023 20:45:00 137 135-146 (m mol/L) Final Potassium 08/09/2023 20:45:00 4.0 3.5-5.1 (m mol/L) Final Cl 08/09/2023 20:45:00 101 98-107 (mm ol/L) Final CO2 08/09/2023 20:45:00 24 22-32 (mmo l/L) Final Anion gap 08/09/2023 20:45:00 12 7-15 (mmol /L) Final Glucose 08/09/2023 20:45:00 235 Above high normal 70 -120 (mg/dL) Final Albumin 08/09/2023 20:45:00 4.0 3.8-5.0 (g /dL) Final AST (Aspartate aminotransferase) 08/09/2023 20:45:00 19 10-50 (U/L) Fin al Alk Phos 08/09/2023 20:45:00 84 35-130 (U/ L) Final Bilirubin, Total 08/09/2023 20:45:00 <0.2 <=1 .2 (mg/dL) Final Calcium 08/09/2023 20:45:00 10.0 8.4-10.2 ( mg/dL) Final Protein 08/09/2023 20:45:00 7.1 6.0-8.3 (g /dL) Final ALT (Alanine aminotransferase) 08/09/2023 20:45:00 16 10-50 (U/L) Jacob swan Performing Location LAB[facility]ORY [facility] - [address] [facility] [address]
--- OUTSIDE RECORDS SUMMARY | 2023-10-05 21:34 | External Medical Summary ---
Author Name Unknown Address Unknown Organization : Laboratory Report Ordering Provider Test Date Status NO,UNKNOWN 08/09/2023 18:55:40 Final Observation Date Value Abnormality Reference (Units ) Status Glucose Point of Care 08/09/2023 18:55:40 205 Above high normal 70-120 (mg/dL) Final Performing Location
--- OUTSIDE RECORDS SUMMARY | 2023-10-05 21:34 | External Medical Summary ---
Author Name Unknown Address Unknown Organization : Laboratory Report Ordering Provider Test Date Status JENNIE CROWE 04/29/2023 20:26:39 Final Observation Date Value Abnormality Reference (Units ) Status Glucose Point of Care 04/29/2023 20:26:39 177 Above high normal 70-120 (mg/dL) Final Performing Location
--- OUTSIDE RECORDS SUMMARY | 2023-10-05 21:34 | External Medical Summary ---
Author Name Unknown Address Unknown Organization : Laboratory Report Ordering Provider Test Date Status JENNIE CROWE 05/01/2023 20:26:21 Final Observation Date Value Abnormality Reference (Units ) Status Glucose Point of Care 05/01/2023 20:26:21 274 Above high normal 70-120 (mg/dL) Final Performing Location
--- OUTSIDE RECORDS SUMMARY | 2023-10-05 21:34 | External Medical Summary ---
Author Name Unknown Address Unknown Organization : Laboratory Report Ordering Provider Test Date Status JENNIE CROWE 04/30/2023 16:18:15 Final Observation Date Value Abnormality Reference (Units ) Status Glucose Point of Care 04/30/2023 16:18:15 140 Above high normal 70-120 (mg/dL) Final Performing Location
--- OUTSIDE RECORDS SUMMARY | 2023-10-05 21:34 | External Medical Summary ---
Author Name Unknown Address Unknown Organization [place] [address] Laboratory Report Ordering Provider Test Date Status DEFAULT,POCT 07/02/2023 17:46:28 Final Observation Date Value Abnormality Reference (Units ) Status [facility] GLUCOSE POC STAT STRIP 07/02/2023 17:46:28 269 Above high normal 70-110 (mg/dL) [place] [address]
--- OUTSIDE RECORDS SUMMARY | 2023-10-05 21:34 | External Medical Summary ---
Author Name Unknown Address Unknown Organization K0X:LABORATORY [address] [place] [address] Laboratory Report Ordering Provider Test Date Status FLORENTINO ALCARAZ 08/09/2023 20:45:00 Final Observation Date Value Abnormality Reference (Units ) Status WBC, Total 08/09/2023 20:45:00 5.89 4.00-10.80 (K/uL) Final RBC 08/09/2023 20:45:00 3.77 4.50-5.25 (M/uL) Final Hemoglobin 08/09/2023 20:45:00 8.8 Below low normal 14.0-16.8 (g/dL) Final HCT 08/09/2023 20:45:00 30.0 Below low normal 40.0-48.4 (%) Final MCV 08/09/2023 20:45:00 79.6 82.0-99.5 (fL) Final MCH 08/09/2023 20:45:00 23.3 27.0-34.0 (pg) Final MCHC 08/09/2023 20:45:00 29.3 32.0-36.0 (g/dL) Final RDW 08/09/2023 20:45:00 15.0 11.5-15.5 (%) Final Platelets 08/09/2023 20:45:00 168 140-400 (K/uL) Final MPV 08/09/2023 20:45:00 11.0 6.6-11.1 (fL) Final Nucleated erythrocytes/100 leukocytes [Ratio] in Blood by Automated count 08/09/2023 20:45:00 0 <=0 (/100 WBCs) Final Performing Location LABORATORY [address] [facility] [place] [address]
--- OUTSIDE RECORDS SUMMARY | 2023-10-05 21:34 | External Medical Summary ---
Author Name Unknown Address Unknown Organization K0N:[facility] [address], [place] [address] Laboratory Report Ordering Provider Test Date Status MEGAN HEALY 07/02/2023 14:04:16 Final Observation Date Value Abnormality Reference (Units ) Status [facility] NEUTROPHIL % - AUTO 07/02/2023 14:04:16 51.1 37.0-63.0 (%) Final [facility] LYMPHOCYTE % - AUTO 07/02/2023 14:04:16 36.8 33.0-37.0 (%) Final [facility] MONOCYTE % - AUTO 07/02/2023 14:04:16 6.8 0.0-9.0 (%) Final [facility] LAB EOSINOPHIL % - AUTO 07/02/2023 14:04:16 4.7 0.0-7.0 (%) Final [facility] BASOPHILS % - AUTO 07/02/2023 14:04:16 0.6 0.0-1.0 (%) Final [facility] NEUTROPHIL # - AUTO 07/02/2023 14:04:16 2.3 1.5-6.6 (K/uL) Final [facility] LAB LYMPHOCYTE # - AUTO 07/02/2023 14:04:16 1.7 1.5-3.5 (K/uL) Final [facility] MONOCYTE # - AUTO 07/02/2023 14:04:16 0.3 0.0-1.0 (K/uL) Final [facility] EOSINOPHIL # - AUTO 07/02/2023 14:04:16 0.2 0.0-0.7 (K/uL) Final [facility] BASOPHILS # - AUTO 07/02/2023 14:04:16 0.0 0.0-0.1 (K/uL) Final [facility] NRBC% AUTOMATED DIFFERENTIAL 07/02/2023 14:04:16 0.1 Above high normal <0.01 (%) Final [facility] LAB MONOCYTE DISTRUBUTION WIDTH (MDW) 07/02/2023 14:04:16 15.81 13.37-22.56 Final The MDW parameter is an Laureano y Sepsis Indicator (ESID) that only applies to Emergency Room patients between the ages of 18-89 years, on whom a complete blood count with automated differential was performed within two (2) hours after collection. MDW values greater than 20.0 together with other laboratory findings and clinical information, aids in identifying patients with sepsis or at increased risk of developing sepsis. Performing Location [place] [id number]
--- OUTSIDE RECORDS SUMMARY | 2023-10-05 21:34 | External Medical Summary ---
Author Name Unknown Address Unknown Organization : Laboratory Report Ordering Provider Test Date Status JENNIE CROWE 05/01/2023 16:43:50 Final Observation Date Value Abnormality Reference (Units ) Status Glucose Point of Care 05/01/2023 16:43:50 267 Above high normal 70-120 (mg/dL) Final Performing Location
--- OUTSIDE RECORDS SUMMARY | 2023-10-05 21:34 | External Medical Summary ---
Author Name Unknown Address Unknown Organization [place] [address] Laboratory Report Ordering Provider Test Date Status MEGAN HEALY 07/02/2023 14:04:16 Final Observation Date Value Abnormality Reference (Units ) Status [facility] BETA HYDROXYBUTYRATE 07/02/2023 14:04:16 0.10 0.02-0.27 (mmol/L) [place] [address]
--- OUTSIDE RECORDS SUMMARY | 2023-10-05 21:34 | External Medical Summary ---
Author Name Unknown Address Unknown Organization : Laboratory Report Ordering Provider Test Date Status JENNIE CROWE 04/30/2023 07:35:05 Final Observation Date Value Abnormality Reference (Units ) Status Glucose Point of Care 04/30/2023 07:35:05 166 Above high normal 70-120 (mg/dL) Final Performing Location
--- OUTSIDE RECORDS SUMMARY | 2023-10-05 21:34 | External Medical Summary ---
Author Name Unknown Address Unknown Organization [id number]:LAB[facility]ATORY [facility] - [facility] [address] [facility] [address] Laboratory Report Ordering Provider Test Date Status ABDIRAHMAN CHIN 06/07/2023 19:30:00 Final Observation Date Value Abnormality Reference (Units ) Status WBC, Total 06/07/2023 19:30:00 6.18 4.00-10.80 (K/uL) Final RBC 06/07/2023 19:30:00 3.74 4.50-5.25 (M/uL) Final Hemoglobin 06/07/2023 19:30:00 10.7 Below low normal 14.0-16.8 (g/dL) Final HCT 06/07/2023 19:30:00 34.9 Below low normal 40.0-48.4 (%) Final MCV 06/07/2023 19:30:00 93.3 82.0-99.5 (fL) Final MCH 06/07/2023 19:30:00 28.6 27.0-34.0 (pg) Final MCHC 06/07/2023 19:30:00 30.7 32.0-36.0 (g/dL) Final RDW 06/07/2023 19:30:00 12.4 11.5-15.5 (%) Final Platelets 06/07/2023 19:30:00 187 140-400 (K/uL) Final MPV 06/07/2023 19:30:00 11.6 6.6-11.1 (fL) Final Nucleated erythrocytes/100 leukocytes [Ratio] in Blood by Automated count 06/07/2023 19:30:00 0 <=0 (/100 WBCs) Final Performing Location LAB[facility]ORY [facility] - [address] [facility] [address]
--- OUTSIDE RECORDS SUMMARY | 2023-10-05 21:34 | External Medical Summary ---
Author Name Unknown Address Unknown Organization : Laboratory Report Ordering Provider Test Date Status JENNIE CROWE 04/30/2023 20:42:57 Final Observation Date Value Abnormality Reference (Units ) Status Glucose Point of Care 04/30/2023 20:42:57 109 70-120 (mg/dL) Final Performing Location
--- OUTSIDE RECORDS SUMMARY | 2023-10-05 21:34 | External Medical Summary ---
Author Name Unknown Address Unknown Organization K0X:LABORATORY [facility] - [address] [facility] [address] Laboratory Report Ordering Provider Test Date Status FLORENTINO ALCARAZ 08/09/2023 20:45:00 Final Observation Date Value Abnormality Reference (Units ) Status SYNC LEUKOCYTES IN BLOOD BY AUTOMATED COUNT 08/09/2023 20:45:00 5.89 4.00-10.80 (K/uL) Final Segs 08/09/2023 20:45:00 43.2 40.0-75.0 (%) Final Lymphs % 08/09/2023 20:45:00 41.4 18.0-42.0 (%) Final Monos 08/09/2023 20:45:00 7.5 1.0-11.0 (%) Final Eosinophils 08/09/2023 20:45:00 7.0 Above high normal 0.0-6.0 (%) Final Basos 08/09/2023 20:45:00 0.7 0.0-2.0 (%) Final Immature Granulocyte, Percent 08/09/2023 20:45:00 0.2 0.0-2.0 (%) Final Absolute Segs 08/09/2023 20:45:00 2.55 1.80-7.70 (K/uL) Final Lymphs, absolute 08/09/2023 20:45:00 2.44 1.00-4.80 (K/ul) Final Monos, Abs 08/09/2023 20:45:00 0.44 0.00-1.10 (K/uL) Final Eos, Abs 08/09/2023 20:45:00 0.41 0.00-0.70 (K/uL) Final Basos, Abs 08/09/2023 20:45:00 0.04 0.00-0.20 (K/uL) Final Immature Granulocytes, Number 08/09/2023 20:45:00 0.01 0.00-0.20 (K/uL) Final Performing Location LAB[facility] - [address] [facility] [address]
--- OUTSIDE RECORDS SUMMARY | 2023-10-05 21:34 | External Medical Summary ---
Author Name Unknown Address Unknown Organization : Laboratory Report Ordering Provider Test Date Status JENNIE CROWE 04/29/2023 12:40:17 Final Observation Date Value Abnormality Reference (Units ) Status Glucose Point of Care 04/29/2023 12:40:17 238 Above high normal 70-120 (mg/dL) Final Performing Location
--- OUTSIDE RECORDS SUMMARY | 2023-10-05 21:34 | External Medical Summary ---
Author Name Unknown Address Unknown Organization [id number]:LABORATORY [facility] - [address] [facility] [address] Laboratory Report Ordering Provider Test Date Status ABDIRAHMAN CHIN 06/07/2023 19:30:00 Final Observation Date Value Abnormality Reference (Units ) Status BUN 06/07/2023 19:30:00 11 6-20 (mg/dL) Final Creatinine 06/07/2023 19:30:00 1.0 0.6-1.2 (mg/dL) Final Glomerular filtration rate/1.73 sq M.predicted [Volume Rate/Area] in Serum, Plasma or Blood by Creatinine-based formula (CKD-EPI) 06/07/2023 19:30:00 >90 >=60 (mL/min) Final eGFR is calculated based on the CKD-EPI 2020 equation SODIUM 06/07/2023 19:30:00 135 135-146 (m mol/L) Final Potassium 06/07/2023 19:30:00 3.7 3.5-5.1 (m mol/L) Final Cl 06/07/2023 19:30:00 100 98-107 (mm ol/L) Final CO2 06/07/2023 19:30:00 22 22-32 (mmo l/L) Final Anion gap 06/07/2023 19:30:00 13 7-15 (mmol /L) Final Glucose 06/07/2023 19:30:00 400 Above high normal 70 -120 (mg/dL) Final Albumin 06/07/2023 19:30:00 4.0 3.8-5.0 (g /dL) Final AST (Aspartate aminotransferase) 06/07/2023 19:30:00 32 10-50 (U/L) Fin al Alk Phos 06/07/2023 19:30:00 72 35-130 (U/ L) Final Bilirubin, Total 06/07/2023 19:30:00 0.4 <=1 .2 (mg/dL) Final Calcium 06/07/2023 19:30:00 8.8 8.4-10.2 ( mg/dL) Final Protein 06/07/2023 19:30:00 7.0 6.0-8.3 (g /dL) Final ALT (Alanine aminotransferase) 06/07/2023 19:30:00 23 10-50 (U/L) Jacob swan Performing Location LABORATORY [facility] - [facility] [address] [facility] [address]
--- OUTSIDE RECORDS SUMMARY | 2023-10-05 21:35 | External Medical Summary ---
Author Name Unknown Address Unknown Organization K01:LABORATORY [facility] [place] - [address] [place] [address] Laboratory Report Ordering Provider Test Date Status AYUSHDIDIERSATHYA 04/28/2023 13:06:00 Final Deficient: <20 ng/mL
Ins ufficient: 20-29 ng/mL
Recommended/Optimum:30-50 ng/mL

Vitamin D intoxication is rare. If suspicious of Vitamin D toxicity, evaluation of serum Calcium and PTH is recommended. Observation Date Value Abnormality Reference (Units ) Status 25-OH Vitamin D total 04/28/2023 13:06:00 34 >19 (ng/mL) Final Performing Location LABORATORY [facility] [place] - [address] [place] [address]
--- OUTSIDE RECORDS SUMMARY | 2023-10-05 21:35 | External Medical Summary ---
Author Name Unknown Address Unknown Organization : Laboratory Report Ordering Provider Test Date Status GREYSON JARAMILLO 04/28/2023 13:29:23 Final Observation Date Value Abnormality Reference (Units ) Status Glucose Point of Care 04/28/2023 13:29:23 286 Above high normal 70-120 (mg/dL) Final Performing Location
--- OUTSIDE RECORDS SUMMARY | 2023-10-05 21:35 | External Medical Summary ---
Author Name Unknown Address Unknown Organization : Laboratory Report Ordering Provider Test Date Status OBEY RUTLEDGE 04/21/2023 16:55:49 Final Observation Date Value Abnormality Reference (Units ) Status Glucose Point of Care 04/21/2023 16:55:49 159 Above high normal 70-120 (mg/dL) Final Performing Location
--- OUTSIDE RECORDS SUMMARY | 2023-10-05 21:35 | External Medical Summary ---
Author Name Unknown Address Unknown Organization : Laboratory Report Ordering Provider Test Date Status ARMANDO SALINAS 04/25/2023 17:25:46 Final Observation Date Value Abnormality Reference (Units ) Status Glucose Point of Care 04/25/2023 17:25:46 240 Above high normal 70-120 (mg/dL) Final Performing Location
--- OUTSIDE RECORDS SUMMARY | 2023-10-05 21:35 | External Medical Summary ---
Author Name Unknown Address Unknown Organization K01:LABORATORY [facility] - [address] [facility] [address] [facility] [address] Laboratory Report Ordering Provider Test Date Status NOLA HILARIO 04/22/2023 09:36:00 Final Observation Date Value Abnormality Reference (Units ) Status Lactic Acid 04/22/2023 09:36:00 2.4 Above high normal 0.4-2.0 (mmol/L) Final Performing Location LABORATORY [facility] - [address] [facility] [address]
--- OUTSIDE RECORDS SUMMARY | 2023-10-05 21:35 | External Medical Summary ---
Author Name Unknown Address Unknown Organization : Laboratory Report Ordering Provider Test Date Status OBEY RUTLEDGE 04/22/2023 20:51:06 Final Observation Date Value Abnormality Reference (Units ) Status Glucose Point of Care 04/22/2023 20:51:06 232 Above high normal 70-120 (mg/dL) Final Performing Location
--- OUTSIDE RECORDS SUMMARY | 2023-10-05 21:35 | External Medical Summary ---
Author Name Unknown Address Unknown Organization K01:LABORATORY [facility] - [address] [facility] [address] [facility] [address] Laboratory Report Ordering Provider Test Date Status NOLA HILARIO 04/23/2023 07:48:00 Final Observation Date Value Abnormality Reference (Units ) Status Phosphate 04/23/2023 07:48:00 2.7 2.5-4.8 (m g/dL) Final Performing Location LAB[facility]ATORY [facility] - [address] [facility] [address]
--- OUTSIDE RECORDS SUMMARY | 2023-10-05 21:35 | External Medical Summary ---
Author Name Unknown Address Unknown Organization K01:LABORATORY [facility] [place] - [address] [facility] [address] Laboratory Report Ordering Provider Test Date Status NOLA HILARIO DELONTE 04/22/2023 09:36:00 Final Observation Date Value Abnormality Reference (Units ) Status BUN 04/22/2023 09:36:00 16 6-20 (mg/dL) Final Creatinine 04/22/2023 09:36:00 0.9 0.6-1.2 (mg/dL) Final Glomerular filtration rate/1.73 sq M.predicted [Volume Rate/Area] in Serum, Plasma or Blood by Creatinine-based formula (CKD-EPI) 04/22/2023 09:36:00 >90 >=60 (mL/min) Final eGFR is calculated based on the CKD-EPI 2020 equation SODIUM 04/22/2023 09:36:00 136 135-146 (m mol/L) Final Potassium 04/22/2023 09:36:00 4.6 3.5-5.1 (m mol/L) Final Cl 04/22/2023 09:36:00 102 98-107 (mm ol/L) Final CO2 04/22/2023 09:36:00 23 22-32 (mmo l/L) Final Anion gap 04/22/2023 09:36:00 11 7-15 (mmol /L) Final Glucose 04/22/2023 09:36:00 385 Above high normal 70 -120 (mg/dL) Final Calcium 04/22/2023 09:36:00 8.4 8.4-10.2 ( mg/dL) Final Performing Location LABORATORY [facility] - [address] [place] [address]
--- OUTSIDE RECORDS SUMMARY | 2023-10-05 21:35 | External Medical Summary ---
Author Name Unknown Address Unknown Organization : Laboratory Report Ordering Provider Test Date Status ARMANDO SALINAS 04/23/2023 17:34:37 Final Observation Date Value Abnormality Reference (Units ) Status Glucose Point of Care 04/23/2023 17:34:37 125 Above high normal 70-120 (mg/dL) Final Performing Location
--- OUTSIDE RECORDS SUMMARY | 2023-10-05 21:35 | External Medical Summary ---
Author Name Unknown Address Unknown Organization K01:LABORATORY [facility] - [address] [facility] [address] Laboratory Report Ordering Provider Test Date Status NOLA HILARIO DELONTE 04/23/2023 07:48:00 Final Observation Date Value Abnormality Reference (Units ) Status BUN 04/23/2023 07:48:00 17 6-20 (mg/dL) Final Creatinine 04/23/2023 07:48:00 0.9 0.6-1.2 (mg/dL) Final Glomerular filtration rate/1.73 sq M.predicted [Volume Rate/Area] in Serum, Plasma or Blood by Creatinine-based formula (CKD-EPI) 04/23/2023 07:48:00 >90 >=60 (mL/min) Final eGFR is calculated based on the CKD-EPI 2020 equation SODIUM 04/23/2023 07:48:00 137 135-146 (m mol/L) Final Potassium 04/23/2023 07:48:00 4.4 3.5-5.1 (m mol/L) Final Cl 04/23/2023 07:48:00 104 98-107 (mm ol/L) Final CO2 04/23/2023 07:48:00 26 22-32 (mmo l/L) Final Anion gap 04/23/2023 07:48:00 7 7-15 (mmol /L) Final Glucose 04/23/2023 07:48:00 276 Above high normal 70 -120 (mg/dL) Final Calcium 04/23/2023 07:48:00 8.9 8.4-10.2 ( mg/dL) Final Performing Location LABORATORY [facility] - [address] [place] [address]
--- OUTSIDE RECORDS SUMMARY | 2023-10-05 21:35 | External Medical Summary ---
Author Name Unknown Address Unknown Organization : Laboratory Report Ordering Provider Test Date Status NO,UNKNOWN 04/27/2023 13:19:27 Final Observation Date Value Abnormality Reference (Units ) Status Glucose Point of Care 04/27/2023 13:19:27 139 Above high normal 70-120 (mg/dL) Final Performing Location
--- OUTSIDE RECORDS SUMMARY | 2023-10-05 21:35 | External Medical Summary ---
Author Name Unknown Address Unknown Organization K01:LABORATORY [facility] [place] - [address] [facility] [address] Laboratory Report Ordering Provider Test Date Status NOLA HILARIO DELONTE 04/24/2023 08:46:00 Final Observation Date Value Abnormality Reference (Units ) Status WBC, Total 04/24/2023 08:46:00 4.25 4.00-10.80 (K/uL) Final RBC 04/24/2023 08:46:00 3.94 4.50-5.25 (M/uL) Final Hemoglobin 04/24/2023 08:46:00 11.7 Below low normal 14.0-16.8 (g/dL) Final HCT 04/24/2023 08:46:00 35.3 Below low normal 40.0-48.4 (%) Final MCV 04/24/2023 08:46:00 89.6 82.0-99.5 (fL) Final MCH 04/24/2023 08:46:00 29.7 27.0-34.0 (pg) Final MCHC 04/24/2023 08:46:00 33.1 32.0-36.0 (g/dL) Final RDW 04/24/2023 08:46:00 12.3 11.5-15.5 (%) Final Platelets 04/24/2023 08:46:00 123 Below low normal 140-400 (K/uL) Final MPV 04/24/2023 08:46:00 12.7 6.6-11.1 (fL) Final Nucleated erythrocytes/100 leukocytes [Ratio] in Blood by Automated count 04/24/2023 08:46:00 0 <=0 (/100 WBCs) Final Performing Location LABORATORY [facility] [place] - [address] [place] [address]
--- OUTSIDE RECORDS SUMMARY | 2023-10-05 21:35 | External Medical Summary ---
Author Name Unknown Address Unknown Organization K01:LAB[facility]ATORY [facility] - [address] [facility] [address] [facility] [address] Laboratory Report Ordering Provider Test Date Status DERIK JEAN 04/25/2023 11:08:00 Final Observation Date Value Abnormality Reference (Units ) Status Troponin T 04/25/2023 11:08:00 15 <=22 (ng/ L) Final Performing Location LABORATORY [facility] - [address] [facility] [address]
--- OUTSIDE RECORDS SUMMARY | 2023-10-05 21:35 | External Medical Summary ---
Author Name Unknown Address Unknown Organization K01:LABORATORY [facility] [place] - [address] [facility] [address] Laboratory Report Ordering Provider Test Date Status GREYSON JARAMILLO 04/28/2023 13:37:19 Final RAPID SURVEILLANCE Observation Date Value Abnormality Reference (Units ) Status SARS Coronavirus 2 04/28/2023 13:37:19 Negative N egative Final 2019 Novel Coronavirus not d etected.

This express test was developed and its performance characteristics determined by [facility]. It has not been cleared or approved by the U.S. Food and Drug Administration (FDA). FDA does not require this test to go thru premarket FDA review. This test is used for clinical purposes. It should not be regarded as investigational or for research. This laboratory is certified under the Clinical Laboratory Improvement Amendments (CLIA) as qualified to perform high complexity clinical laboratory testing.

This test is a nucleic acid amplification test (NAAT), a reverse transcriptase polymerase chain reaction (RT-PCR) test, or a Centers for Disease Control-acceptable equivalent. The test is performed in a high complexity Clinical Laboratory Improvement Amendments-(CLIA) certified laboratory. The test is acceptable for SARS-CoV-2 diagnosis, surveillance, and travel within the [place] and to most countries. Please check with local testing authorities about requirements before travel.

The validation of bronchial specimens, tracheal aspirates, and sputum for this assay was developed and performance characteristics determined by [facility]. The validation of alternate specimen types has not been cleared or approved by the U.S. Food and Drug Administration (FDA). It has been determined that such clearance is not necessary. Performing Location LABORATORY [facility] [place] - [facility] [address] [facility] [address]
--- OUTSIDE RECORDS SUMMARY | 2023-10-05 21:35 | External Medical Summary ---
Author Name Unknown Address Unknown Organization K01:LABORATORY [facility] [place] - [address] [facility] [address] Laboratory Report Ordering Provider Test Date Status NOLA HILARIO 04/21/2023 17:57:00 Final Observation Date Value Abnormality Reference (Units ) Status Lactic Acid 04/21/2023 17:57:00 1.4 0.4-2.0 (mmol/L) Final Performing Location LABORATORY [facility] - [address] [facility] [address]
--- OUTSIDE RECORDS SUMMARY | 2023-10-05 21:35 | External Medical Summary ---
Author Name Unknown Address Unknown Organization K01:LABORATORY C - [address] [facility] [place] [facility] [address] Laboratory Report Ordering Provider Test Date Status NOLA HILARIO 04/23/2023 07:48:00 Final Observation Date Value Abnormality Reference (Units ) Status Magnesium 04/23/2023 07:48:00 2.0 1.5-2.6 (m g/dL) Final Performing Location [facility] - [address] [facility] [address]
--- OUTSIDE RECORDS SUMMARY | 2023-10-05 21:35 | External Medical Summary ---
Author Name Unknown Address Unknown Organization : Laboratory Report Ordering Provider Test Date Status OBEY RUTLEDGE 04/22/2023 16:35:23 Final Observation Date Value Abnormality Reference (Units ) Status Glucose Point of Care 04/22/2023 16:35:23 108 70-120 (mg/dL) Final Performing Location
--- OUTSIDE RECORDS SUMMARY | 2023-10-05 21:35 | External Medical Summary ---
Author Name Unknown Address Unknown Organization K01:[facility]ORY [facility] [place] [address] [facility] [place]. [facility] [address] Laboratory Report Ordering Provider Test Date Status NOLA HILARIO 04/22/2023 09:36:00 Final Observation Date Value Abnormality Reference (Units ) Status Magnesium 04/22/2023 09:36:00 2.0 1.5-2.6 (m g/dL) Final Performing Location LAB[facility]ATORY [facility] - [address] [facility] [address]
--- OUTSIDE RECORDS SUMMARY | 2023-10-05 21:35 | External Medical Summary ---
Author Name Unknown Address Unknown Organization : Laboratory Report Ordering Provider Test Date Status GREYSON JARAMILLO 04/28/2023 18:16:31 Final Observation Date Value Abnormality Reference (Units ) Status Glucose Point of Care 04/28/2023 18:16:31 315 Above high normal 70-120 (mg/dL) Final Performing Location
--- OUTSIDE RECORDS SUMMARY | 2023-10-05 21:35 | External Medical Summary ---
Author Name Unknown Address Unknown Organization : Laboratory Report Ordering Provider Test Date Status ARMANDO SALINAS 04/23/2023 07:31:51 Final Observation Date Value Abnormality Reference (Units ) Status Glucose Point of Care 04/23/2023 07:31:51 220 Above high normal 70-120 (mg/dL) Final Performing Location
--- OUTSIDE RECORDS SUMMARY | 2023-10-05 21:35 | External Medical Summary ---
Author Name Unknown Address Unknown Organization K01:LABORATORY [facility] [place] - [facility] [address] Laboratory Report Ordering Provider Test Date Status NOLA HILARIO DELONTE 04/23/2023 07:48:00 Final Observation Date Value Abnormality Reference (Units ) Status WBC, Total 04/23/2023 07:48:00 5.06 4.00-10.80 (K/uL) Final RBC 04/23/2023 07:48:00 3.92 4.50-5.25 (M/uL) Final Hemoglobin 04/23/2023 07:48:00 11.7 Below low normal 14.0-16.8 (g/dL) Final HCT 04/23/2023 07:48:00 36.3 Below low normal 40.0-48.4 (%) Final MCV 04/23/2023 07:48:00 92.6 82.0-99.5 (fL) Final MCH 04/23/2023 07:48:00 29.8 27.0-34.0 (pg) Final MCHC 04/23/2023 07:48:00 32.2 32.0-36.0 (g/dL) Final RDW 04/23/2023 07:48:00 12.4 11.5-15.5 (%) Final Platelets 04/23/2023 07:48:00 122 Below low normal 140-400 (K/uL) Final MPV 04/23/2023 07:48:00 12.3 6.6-11.1 (fL) Final Nucleated erythrocytes/100 leukocytes [Ratio] in Blood by Automated count 04/23/2023 07:48:00 0 <=0 (/100 WBCs) Final Performing Location LABORATORY [facility] - [address] [place] [address]
--- OUTSIDE RECORDS SUMMARY | 2023-10-05 21:35 | External Medical Summary ---
Author Name Unknown Address Unknown Organization K01:LABORATORY C - [address] [facility] [address] Laboratory Report Ordering Provider Test Date Status CASSI JARAMILLOAF 04/28/2023 13:06:00 Final Observation Date Value Abnormality Reference (Units ) Status Ethanol 04/28/2023 13:06:00 Negative Negative Final Performing Location LABORATORY C - [address] [facility] [address]
--- OUTSIDE RECORDS SUMMARY | 2023-10-05 21:35 | External Medical Summary ---
Author Name Unknown Address Unknown Organization K01:LABORATORY [facility] [place] - [address] [facility] [address] [facility] [address] Laboratory Report Ordering Provider Test Date Status NOLA HILARIO 04/22/2023 09:36:00 Final Observation Date Value Abnormality Reference (Units ) Status Phosphate 04/22/2023 09:36:00 2.4 Below low normal 2.5 -4.8 (mg/dL) Final Performing Location LAB[facility]ATORY [facility] - [address] [facility] [address]
--- OUTSIDE RECORDS SUMMARY | 2023-10-05 21:35 | External Medical Summary ---
Author Name Unknown Address Unknown Organization K01:LABORATORY C - [address] [facility] [place] [facility] [address] Laboratory Report Ordering Provider Test Date Status NOLA HILARIO 04/24/2023 08:46:00 Final Observation Date Value Abnormality Reference (Units ) Status Magnesium 04/24/2023 08:46:00 1.8 1.5-2.6 (m g/dL) Final Performing Location [facility]ORY [facility] - [address] [facility] [address]
--- OUTSIDE RECORDS SUMMARY | 2023-10-05 21:35 | External Medical Summary ---
Author Name Unknown Address Unknown Organization : Laboratory Report Ordering Provider Test Date Status ARMANDO SALINAS 04/24/2023 16:45:35 Final Observation Date Value Abnormality Reference (Units ) Status Glucose Point of Care 04/24/2023 16:45:35 300 Above high normal 70-120 (mg/dL) Final Performing Location
--- OUTSIDE RECORDS SUMMARY | 2023-10-05 21:35 | External Medical Summary ---
Author Name Unknown Address Unknown Organization K01:LABORATORY [facility] [place] - [address] [facility] [facility] [address] Laboratory Report Ordering Provider Test Date Status NOLA HILARIO 04/23/2023 09:35:00 Final Observation Date Value Abnormality Reference (Units ) Status Troponin T 04/23/2023 09:35:00 13 <=22 (ng/ L) Final Performing Location LABORATORY [facility] - [address] [facility] [address]
--- OUTSIDE RECORDS SUMMARY | 2023-10-05 21:35 | External Medical Summary ---
Author Name Unknown Address Unknown Organization K01:LABORATORY [facility] [place] - [address] [facility] [address] [facility] [address] Laboratory Report Ordering Provider Test Date Status NOLA HILARIO DELONTE 04/24/2023 08:46:00 Final Observation Date Value Abnormality Reference (Units ) Status BUN 04/24/2023 08:46:00 17 6-20 (mg/dL) Final Creatinine 04/24/2023 08:46:00 0.8 0.6-1.2 (mg/dL) Final Glomerular filtration rate/1.73 sq M.predicted [Volume Rate/Area] in Serum, Plasma or Blood by Creatinine-based formula (CKD-EPI) 04/24/2023 08:46:00 >90 >=60 (mL/min) Final eGFR is calculated based on the CKD-EPI 2020 equation SODIUM 04/24/2023 08:46:00 142 135-146 (m mol/L) Final Potassium 04/24/2023 08:46:00 3.8 3.5-5.1 (m mol/L) Final Cl 04/24/2023 08:46:00 107 98-107 (mm ol/L) Final CO2 04/24/2023 08:46:00 25 22-32 (mmo l/L) Final Anion gap 04/24/2023 08:46:00 10 7-15 (mmol /L) Final Glucose 04/24/2023 08:46:00 123 Above high normal 70 -120 (mg/dL) Final Calcium 04/24/2023 08:46:00 9.1 8.4-10.2 ( mg/dL) Final Performing Location LABORATORY [facility] [place] - [address] [place] [address]
--- OUTSIDE RECORDS SUMMARY | 2023-10-05 21:35 | External Medical Summary ---
Author Name Unknown Address Unknown Organization K01:[place] [facility] [place] [facility] [address] [facility] [address] Laboratory Report Ordering Provider Test Date Status NOLA HILARIO DELONTE 04/22/2023 09:36:00 Final Observation Date Value Abnormality Reference (Units ) Status WBC, Total 04/22/2023 09:36:00 4.21 4.00-10.80 (K/uL) Final RBC 04/22/2023 09:36:00 3.73 4.50-5.25 (M/uL) Final Hemoglobin 04/22/2023 09:36:00 11.3 Below low normal 14.0-16.8 (g/dL) Final HCT 04/22/2023 09:36:00 34.0 Below low normal 40.0-48.4 (%) Final MCV 04/22/2023 09:36:00 91.2 82.0-99.5 (fL) Final MCH 04/22/2023 09:36:00 30.3 27.0-34.0 (pg) Final MCHC 04/22/2023 09:36:00 33.2 32.0-36.0 (g/dL) Final RDW 04/22/2023 09:36:00 12.3 11.5-15.5 (%) Final Platelets 04/22/2023 09:36:00 116 Below low normal 140-400 (K/uL) Final MPV 04/22/2023 09:36:00 12.4 6.6-11.1 (fL) Final Nucleated erythrocytes/100 leukocytes [Ratio] in Blood by Automated count 04/22/2023 09:36:00 0 <=0 (/100 WBCs) Final Performing Location [place] [facility] [place] [address] [place] [address]
--- OUTSIDE RECORDS SUMMARY | 2023-10-05 21:35 | External Medical Summary ---
Author Name Unknown Address Unknown Organization K01:LABORATORY C - [address] [facility] [place] [facility] [address] Laboratory Report Ordering Provider Test Date Status NOLA HILARIO 04/25/2023 06:31:00 Final Observation Date Value Abnormality Reference (Units ) Status Magnesium 04/25/2023 06:31:00 1.9 1.5-2.6 (m g/dL) Final Performing Location [facility]ORY [facility] - [address] [facility] [address]
--- OUTSIDE RECORDS SUMMARY | 2023-10-05 21:35 | External Medical Summary ---
Author Name Unknown Address Unknown Organization K01:LABORATORY [facility] [place] - [address] [facility] [address] [facility] [address] Laboratory Report Ordering Provider Test Date Status NOLA HILARIO DELONTE 04/25/2023 06:31:00 Final Observation Date Value Abnormality Reference (Units ) Status WBC, Total 04/25/2023 06:31:00 6.56 4.00-10.80 (K/uL) Final RBC 04/25/2023 06:31:00 3.82 4.50-5.25 (M/uL) Final Hemoglobin 04/25/2023 06:31:00 11.2 Below low normal 14.0-16.8 (g/dL) Final HCT 04/25/2023 06:31:00 35.1 Below low normal 40.0-48.4 (%) Final MCV 04/25/2023 06:31:00 91.9 82.0-99.5 (fL) Final MCH 04/25/2023 06:31:00 29.3 27.0-34.0 (pg) Final MCHC 04/25/2023 06:31:00 31.9 32.0-36.0 (g/dL) Final RDW 04/25/2023 06:31:00 12.2 11.5-15.5 (%) Final Platelets 04/25/2023 06:31:00 120 Below low normal 140-400 (K/uL) Final MPV 04/25/2023 06:31:00 11.9 6.6-11.1 (fL) Final Nucleated erythrocytes/100 leukocytes [Ratio] in Blood by Automated count 04/25/2023 06:31:00 0 <=0 (/100 WBCs) Final Performing Location LABORATORY [facility] - [address] [place] [address]
--- OUTSIDE RECORDS SUMMARY | 2023-10-05 21:35 | External Medical Summary ---
Author Name Unknown Address Unknown Organization K01:LABORATORY C - [address] [facility] [address] Laboratory Report Ordering Provider Test Date Status NOLA HILARIO 04/25/2023 06:31:00 Final Observation Date Value Abnormality Reference (Units ) Status Phosphate 04/25/2023 06:31:00 3.4 2.5-4.8 (m g/dL) Final Performing Location LAB[facility]ATORY [facility] - [address] [facility] [address]
--- OUTSIDE RECORDS SUMMARY | 2023-10-05 21:35 | External Medical Summary ---
Author Name Unknown Address Unknown Organization : Laboratory Report Ordering Provider Test Date Status JENNIE CROWE 04/29/2023 08:54:24 Final Observation Date Value Abnormality Reference (Units ) Status Glucose Point of Care 04/29/2023 08:54:24 200 Above high normal 70-120 (mg/dL) Final Performing Location
--- OUTSIDE RECORDS SUMMARY | 2023-10-05 21:35 | External Medical Summary ---
Author Name Unknown Address Unknown Organization K01:LABORATORY [facility] [place] - [address] [facility] [address] Laboratory Report Ordering Provider Test Date Status NOLA HILARIO 04/21/2023 23:39:00 Final Observation Date Value Abnormality Reference (Units ) Status Lactic Acid 04/21/2023 23:39:00 1.2 0.4-2.0 (mmol/L) Final Performing Location LABORATORY [facility] [place] - [address] [facility] [address]
--- OUTSIDE RECORDS SUMMARY | 2023-10-05 21:35 | External Medical Summary ---
Author Name Unknown Address Unknown Organization K01:LABORATORY [facility] [place] [address] [facility] [address] Laboratory Report Ordering Provider Test Date Status GREYSON JARAMILLO 04/28/2023 13:06:00 Final Observation Date Value Abnormality Reference (Units ) Status BUN 04/28/2023 13:06:00 17 6-20 (mg/dL) Final Creatinine 04/28/2023 13:06:00 0.9 0.6-1.2 (mg/dL) Final Glomerular filtration rate/1.73 sq M.predicted [Volume Rate/Area] in Serum, Plasma or Blood by Creatinine-based formula (CKD-EPI) 04/28/2023 13:06:00 >90 >=60 (mL/min) Final eGFR is calculated based on the CKD-EPI 2020 equation SODIUM 04/28/2023 13:06:00 136 135-146 (m mol/L) Final Potassium 04/28/2023 13:06:00 4.6 3.5-5.1 (m mol/L) Final Cl 04/28/2023 13:06:00 105 98-107 (mm ol/L) Final CO2 04/28/2023 13:06:00 22 22-32 (mmo l/L) Final Anion gap 04/28/2023 13:06:00 9 7-15 (mmol /L) Final Glucose 04/28/2023 13:06:00 312 Above high normal 70 -120 (mg/dL) Final Albumin 04/28/2023 13:06:00 3.6 Below low normal 3.8 -5.0 (g/dL) Final AST (Aspartate aminotransferase) 04/28/2023 13:06:00 22 10-50 (U/L) Fin al Alk Phos 04/28/2023 13:06:00 73 35-130 (U/ L) Final Bilirubin, Total 04/28/2023 13:06:00 0.4 <=1 .2 (mg/dL) Final Calcium 04/28/2023 13:06:00 9.3 8.4-10.2 ( mg/dL) Final Protein 04/28/2023 13:06:00 6.4 6.0-8.3 (g /dL) Final ALT (Alanine aminotransferase) 04/28/2023 13:06:00 24 10-50 (U/L) Jacob swan Performing Location LABORATORY [facility] [place] [facility] [address] [facility] [address]
--- OUTSIDE RECORDS SUMMARY | 2023-10-05 21:35 | External Medical Summary ---
Author Name Unknown Address Unknown Organization : Laboratory Report Ordering Provider Test Date Status ARMANDO SALINAS 04/25/2023 11:58:23 Final Observation Date Value Abnormality Reference (Units ) Status Glucose Point of Care 04/25/2023 11:58:23 198 Above high normal 70-120 (mg/dL) Final Performing Location
--- OUTSIDE RECORDS SUMMARY | 2023-10-05 21:35 | External Medical Summary ---
Author Name Unknown Address Unknown Organization K01:[place] [facility] [place] [facility] [address] Laboratory Report Ordering Provider Test Date Status GREYSON JARAMILLO 04/28/2023 13:05:00 Final Observation Date Value Abnormality Reference (Units ) Status WBC, Total 04/28/2023 13:05:00 4.76 4.00-10.80 (K/uL) Final RBC 04/28/2023 13:05:00 3.74 4.50-5.25 (M/uL) Final Hemoglobin 04/28/2023 13:05:00 11.2 Below low normal 14.0-16.8 (g/dL) Final HCT 04/28/2023 13:05:00 34.5 Below low normal 40.0-48.4 (%) Final MCV 04/28/2023 13:05:00 92.2 82.0-99.5 (fL) Final MCH 04/28/2023 13:05:00 29.9 27.0-34.0 (pg) Final MCHC 04/28/2023 13:05:00 32.5 32.0-36.0 (g/dL) Final RDW 04/28/2023 13:05:00 12.2 11.5-15.5 (%) Final Platelets 04/28/2023 13:05:00 151 140-400 (K/uL) Final MPV 04/28/2023 13:05:00 11.6 6.6-11.1 (fL) Final Nucleated erythrocytes/100 leukocytes [Ratio] in Blood by Automated count 04/28/2023 13:05:00 0 <=0 (/100 WBCs) Final Performing Location [place] [facility] [place] [address] [facility] [address]
--- OUTSIDE RECORDS SUMMARY | 2023-10-05 21:35 | External Medical Summary ---
Author Name Unknown Address Unknown Organization : Laboratory Report Ordering Provider Test Date Status GREYSON JARAMILLO 04/28/2023 16:12:13 Final Observation Date Value Abnormality Reference (Units ) Status Glucose Point of Care 04/28/2023 16:12:13 289 Above high normal 70-120 (mg/dL) Final Performing Location
--- OUTSIDE RECORDS SUMMARY | 2023-10-05 21:35 | External Medical Summary ---
Author Name Unknown Address Unknown Organization K01:LAB[facility]ORY [facility] [place] [address] [facility] [address] Laboratory Report Ordering Provider Test Date Status ESPINOZA FATIMA 04/27/2023 13:34:00 Final Observation Date Value Abnormality Reference (Units ) Status SYNC LEUKOCYTES IN BLOOD BY AUTOMATED COUNT 04/27/2023 13:34:00 5.30 4.00-10.80 (K/uL) Final Segs 04/27/2023 13:34:00 52.9 40.0-75.0 (%) Final Lymphs % 04/27/2023 13:34:00 30.0 18.0-42.0 (%) Final Monos 04/27/2023 13:34:00 9.1 1.0-11.0 (%) Final Eosinophils 04/27/2023 13:34:00 7.0 Above high normal 0.0-6.0 (%) Final Basos 04/27/2023 13:34:00 0.6 0.0-2.0 (%) Final Immature Granulocyte, Percent 04/27/2023 13:34:00 0.4 0.0-2.0 (%) Final Absolute Segs 04/27/2023 13:34:00 2.81 1.80-7.70 (K/uL) Final Lymphs, absolute 04/27/2023 13:34:00 1.59 1.00-4.80 (K/ul) Final Monos, Abs 04/27/2023 13:34:00 0.48 0.00-1.10 (K/uL) Final Eos, Abs 04/27/2023 13:34:00 0.37 0.00-0.70 (K/uL) Final Basos, Abs 04/27/2023 13:34:00 0.03 0.00-0.20 (K/uL) Final Immature Granulocytes, Number 04/27/2023 13:34:00 0.02 0.00-0.20 (K/uL) Final Performing Location LABORATORY [facility] [place] [address] [facility] [address]
--- OUTSIDE RECORDS SUMMARY | 2023-10-05 21:35 | External Medical Summary ---
Author Name Unknown Address Unknown Organization : Laboratory Report Ordering Provider Test Date Status ARMANDO SALINAS 04/25/2023 07:25:47 Final Observation Date Value Abnormality Reference (Units ) Status Glucose Point of Care 04/25/2023 07:25:47 244 Above high normal 70-120 (mg/dL) Final Performing Location
--- OUTSIDE RECORDS SUMMARY | 2023-10-05 21:35 | External Medical Summary ---
Author Name Unknown Address Unknown Organization K01:LABORATORY [facility] [place] - [address] [facility] [address] Laboratory Report Ordering Provider Test Date Status NOLA HILARIO DELONTE 04/25/2023 06:31:00 Final Observation Date Value Abnormality Reference (Units ) Status BUN 04/25/2023 06:31:00 21 Above high normal 6-20 (mg/dL) Final Creatinine 04/25/2023 06:31:00 0.9 0.6-1.2 (mg/dL) Final Glomerular filtration rate/1.73 sq M.predicted [Volume Rate/Area] in Serum, Plasma or Blood by Creatinine-based formula (CKD-EPI) 04/25/2023 06:31:00 >90 >=60 (mL/min) Final eGFR is calculated based on the CKD-EPI 2020 equation SODIUM 04/25/2023 06:31:00 134 Below low normal 135 -146 (mmol/L) Final Potassium 04/25/2023 06:31:00 4.1 3.5-5.1 (m mol/L) Final Cl 04/25/2023 06:31:00 102 98-107 (mm ol/L) Final CO2 04/25/2023 06:31:00 23 22-32 (mmo l/L) Final Anion gap 04/25/2023 06:31:00 9 7-15 (mmol /L) Final Glucose 04/25/2023 06:31:00 292 Above high normal 70 -120 (mg/dL) Final Calcium 04/25/2023 06:31:00 9.1 8.4-10.2 ( mg/dL) Final Performing Location LABORATORY [facility] [place] - [address] [facility] [address]
--- OUTSIDE RECORDS SUMMARY | 2023-10-05 21:35 | External Medical Summary ---
Author Name Unknown Address Unknown Organization : Laboratory Report Ordering Provider Test Date Status ARMANDO SALINAS 04/23/2023 20:52:26 Final Observation Date Value Abnormality Reference (Units ) Status Glucose Point of Care 04/23/2023 20:52:26 225 Above high normal 70-120 (mg/dL) Final Performing Location
--- OUTSIDE RECORDS SUMMARY | 2023-10-05 21:35 | External Medical Summary ---
Author Name Unknown Address Unknown Organization : Laboratory Report Ordering Provider Test Date Status ARMANDO SALINAS 04/23/2023 16:20:35 Final Observation Date Value Abnormality Reference (Units ) Status Glucose Point of Care 04/23/2023 16:20:35 109 70-120 (mg/dL) Final Performing Location
--- OUTSIDE RECORDS SUMMARY | 2023-10-05 21:35 | External Medical Summary ---
Author Name Unknown Address Unknown Organization K01:LABORATORY C - [address] [facility] [address] Laboratory Report Ordering Provider Test Date Status NOLA HILARIO 04/24/2023 08:46:00 Final Observation Date Value Abnormality Reference (Units ) Status Phosphate 04/24/2023 08:46:00 3.0 2.5-4.8 (m g/dL) Final Performing Location LAB[facility]ORY [facility] - [address] [facility] [address]
--- OUTSIDE RECORDS SUMMARY | 2023-10-05 21:35 | External Medical Summary ---
Author Name Unknown Address Unknown Organization K01:[place] [facility] [place] [address] [facility] [address] Laboratory Report Ordering Provider Test Date Status TIFFANY PEACOCK 04/28/2023 13:06:00 Final Observation Date Value Abnormality Reference (Units ) Status TSH 04/28/2023 13:06:00 5.43 Above high normal 0. 27-4.20 (uIU/mL) Final Performing Location [place] [facility] [place] [address] [place] [facility] [address]
--- OUTSIDE RECORDS SUMMARY | 2023-10-05 21:35 | External Medical Summary ---
Author Name Unknown Address Unknown Organization : Laboratory Report Ordering Provider Test Date Status ARMANDO SALINAS 04/24/2023 08:02:46 Final Observation Date Value Abnormality Reference (Units ) Status Glucose Point of Care 04/24/2023 08:02:46 127 Above high normal 70-120 (mg/dL) Final Performing Location
--- OUTSIDE RECORDS SUMMARY | 2023-10-05 21:35 | External Medical Summary ---
Author Name Unknown Address Unknown Organization : Laboratory Report Ordering Provider Test Date Status ARMANDO SALINAS 04/24/2023 21:00:00 Final Observation Date Value Abnormality Reference (Units ) Status Glucose Point of Care 04/24/2023 21:00:00 172 Above high normal 70-120 (mg/dL) Final Performing Location
--- OUTSIDE RECORDS SUMMARY | 2023-10-05 21:35 | External Medical Summary ---
Author Name Unknown Address Unknown Organization K01:LABORATORY C - [address] [facility] [address] Laboratory Report Ordering Provider Test Date Status TIFFANY PEACOCK 04/28/2023 13:06:00 Final Observation Date Value Abnormality Reference (Units ) Status T4, Free 04/28/2023 13:06:00 1.0 0.9-1.7 (n g/dL) Final Performing Location LAB[facility]ORY [facility] - [address] [facility] [address]
--- OUTSIDE RECORDS SUMMARY | 2023-10-05 21:35 | External Medical Summary ---
Author Name Unknown Address Unknown Organization : Laboratory Report Ordering Provider Test Date Status OBEY RUTLEDGE 04/22/2023 07:18:09 Final Observation Date Value Abnormality Reference (Units ) Status Glucose Point of Care 04/22/2023 07:18:09 270 Above high normal 70-120 (mg/dL) Final Performing Location
--- OUTSIDE RECORDS SUMMARY | 2023-10-05 21:35 | External Medical Summary ---
Author Name Unknown Address Unknown Organization K01:[place]ORY [facility] [place] [address] [facility] [address] Laboratory Report Ordering Provider Test Date Status ESPINOZA FATIMA 04/27/2023 13:34:00 Final Observation Date Value Abnormality Reference (Units ) Status BUN 04/27/2023 13:34:00 21 Above high normal 6-20 (mg/dL) Final Creatinine 04/27/2023 13:34:00 1.0 0.6-1.2 (mg/dL) Final Glomerular filtration rate/1.73 sq M.predicted [Volume Rate/Area] in Serum, Plasma or Blood by Creatinine-based formula (CKD-EPI) 04/27/2023 13:34:00 83 >=60 (mL/min) Final eGFR is calculated based on the CKD-EPI 2020 equation SODIUM 04/27/2023 13:34:00 141 135-146 (m mol/L) Final Potassium 04/27/2023 13:34:00 3.4 Below low normal 3.5 -5.1 (mmol/L) Final Cl 04/27/2023 13:34:00 108 Above high normal 98 -107 (mmol/L) Final CO2 04/27/2023 13:34:00 22 22-32 (mmo l/L) Final Anion gap 04/27/2023 13:34:00 11 7-15 (mmol /L) Final Glucose 04/27/2023 13:34:00 162 Above high normal 70 -120 (mg/dL) Final Albumin 04/27/2023 13:34:00 3.6 Below low normal 3.8 -5.0 (g/dL) Final AST (Aspartate aminotransferase) 04/27/2023 13:34:00 18 10-50 (U/L) Fin al Alk Phos 04/27/2023 13:34:00 63 35-130 (U/ L) Final Bilirubin, Total 04/27/2023 13:34:00 0.4 <=1 .2 (mg/dL) Final Calcium 04/27/2023 13:34:00 9.0 8.4-10.2 ( mg/dL) Final Protein 04/27/2023 13:34:00 6.2 6.0-8.3 (g /dL) Final ALT (Alanine aminotransferase) 04/27/2023 13:34:00 20 10-50 (U/L) Jacob swan Performing Location LABOR[place]ORY [facility] [place] [address] [facility] [address]
--- OUTSIDE RECORDS SUMMARY | 2023-10-05 21:35 | External Medical Summary ---
Author Name Unknown Address Unknown Organization K01:LABORATORY [facility] [place] - [address] [facility] [facility] [address] Laboratory Report Ordering Provider Test Date Status ESPINOZA FATIMA 04/27/2023 13:34:00 Final Observation Date Value Abnormality Reference (Units ) Status WBC, Total 04/27/2023 13:34:00 5.30 4.00-10.80 (K/uL) Final RBC 04/27/2023 13:34:00 3.52 4.50-5.25 (M/uL) Final Hemoglobin 04/27/2023 13:34:00 10.6 Below low normal 14.0-16.8 (g/dL) Final HCT 04/27/2023 13:34:00 32.4 Below low normal 40.0-48.4 (%) Final MCV 04/27/2023 13:34:00 92.0 82.0-99.5 (fL) Final MCH 04/27/2023 13:34:00 30.1 27.0-34.0 (pg) Final MCHC 04/27/2023 13:34:00 32.7 32.0-36.0 (g/dL) Final RDW 04/27/2023 13:34:00 12.3 11.5-15.5 (%) Final Platelets 04/27/2023 13:34:00 128 Below low normal 140-400 (K/uL) Final MPV 04/27/2023 13:34:00 11.7 6.6-11.1 (fL) Final Nucleated erythrocytes/100 leukocytes [Ratio] in Blood by Automated count 04/27/2023 13:34:00 0 <=0 (/100 WBCs) Final Performing Location LABORATORY [facility] [place] - [address] [facility] [address]
--- OUTSIDE RECORDS SUMMARY | 2023-10-05 21:35 | External Medical Summary ---
Author Name Unknown Address Unknown Organization : Laboratory Report Ordering Provider Test Date Status OBEY RUTLEDGE 04/21/2023 20:48:33 Final Observation Date Value Abnormality Reference (Units ) Status Glucose Point of Care 04/21/2023 20:48:33 241 Above high normal 70-120 (mg/dL) Final Performing Location
--- OUTSIDE RECORDS SUMMARY | 2023-10-05 21:35 | External Medical Summary ---
Author Name Unknown Address Unknown Organization K01:LABORATORY [facility] [place] - [address] [facility] [address] Laboratory Report Ordering Provider Test Date Status GREYSON JARAMILLO 04/28/2023 13:09:00 Final Cutoff Concentrations:
Drug Level
Amphetamines 500 ng/mL
Benzodiazepines 100 ng/mL
Cannabinoids 50 ng/mL
Cocaine Metabolite 150 ng/mL
Fentanyl 1 ng/mL
Hydrocodone / Hydromorphone 300 ng/mL
Methadone Metabolite 100 ng/mL
Morphine / Codeine 300 ng/mL
Oxycodone / Oxymorphone 100 ng/mL

Screening results are presumptive and can only be used for medical purposes. Confirmatory testing is available upon request. Observation Date Value Abnormality Reference (Units ) Status Amphetamines, Urine screen 04/28/2023 13:09:00 Negative Negative Final Benzodiazepines, Urine screen 04/28/2023 13:09:00 Negative Negative Final Cannabinoids, Urine screen 04/28/2023 13:09:00 Negative Negative Final Cocaine Metabolite, Urine screen 04/28/2023 13:09:00 Negative Negative Final fentaNYL [Presence] in Urine by Screen method 04/28/2023 13:09:00 Negative Negative Final HYDROcodone [Presence] in Urine by Screen method 04/28/2023 13:09:00 Negative Negative Final 3-Xgdzauhqpy-2,5-Dimeth yl-3,3-Diphenylpyrrolid ine (EDDP) [Presence] in Urine 04/28/2023 13:09:00 Negative Negative Final Opiates, Urine screen 04/28/2023 13:09:00 Negative Negative Final oxyCODONE [Presence] in Urine by Screen method 04/28/2023 13:09:00 Negative Negative Final Performing Location LABORATORY C - [address] [facility] [address]
--- OUTSIDE RECORDS SUMMARY | 2023-10-05 21:36 | External Medical Summary ---
Author Name Unknown Address Unknown Organization [id number]:LAB[facility]ATORY [facility] [place] - [address] [facility] [address] Laboratory Report Ordering Provider Test Date Status SINGER MACIE 04/21/2023 13:06:00 Final Observation Date Value Abnormality Reference (Units ) Status Osmolality 04/21/2023 13:06:00 302 278-305 ( mOsm/kg) Final Performing Location LAB[facility]ATORY [facility] - [address] [facility] [address]
--- OUTSIDE RECORDS SUMMARY | 2023-10-05 21:36 | External Medical Summary ---
Author Name Unknown Address Unknown Organization K01:[facility]ORY [facility] [place] [address] [facility] [address] Laboratory Report Ordering Provider Test Date Status ABDIRAHMAN CHIN 04/13/2023 12:28:00 Final Observation Date Value Abnormality Reference (Units ) Status Lipase 04/13/2023 12:28:00 45 13-60 (U/L ) Final Performing Location LAB[facility] [place] [address] [facility] [address]
--- OUTSIDE RECORDS SUMMARY | 2023-10-05 21:36 | External Medical Summary ---
Author Name Unknown Address Unknown Organization K01:[place] [place] [address] [facility] [address] Laboratory Report Ordering Provider Test Date Status SINGER MACIE 04/21/2023 13:06:00 Final Observation Date Value Abnormality Reference (Units ) Status Body temperature 04/21/2023 13:06:00 37.0 (C) Final pH of Venous blood 04/21/2023 13:06:00 7.375 7.320-7.430 (units) Final Carbon dioxide [Partial pressure] in Venous blood 04/21/2023 13:06:00 39.8 Below low normal 40.0-60.0 (mmHg) Final Oxygen [Partial pressure] in Venous blood 04/21/2023 13:06:00 41.5 25.0-50.0 (mmHg) Final Base excess, Capillary 04/21/2023 13:06:00 -1.7 -2.0-2.0 (mmol/L) Final Hemoglobin [Mass/volume] in Blood by Oximetry 04/21/2023 13:06:00 12.6 Below low normal 14.0-16.8 (g/dL) Final Oxyhemoglobin, Venous (FO2HB) 04/21/2023 13:06:00 71.2 40.0-85.0 (% total Hgb) Final Carboxyhemoglobin 04/21/2023 13:06:00 1.4 <=1.5 (% total Hgb) Final Smokers: 0-9.0 % Methemoglobin 04/21/2023 13:06:00 0.9 <= 1.5 (% total Hgb) Final Deoxyhemoglobin/Hemoglo bin.total in Venous blood 04/21/2023 13:06:00 26.5 (% total Hgb) Final Oxygen content in Venous blood 04/21/2023 13:06:00 12.6 7.0-18.0 (%vol) Final Bicarbonate, Venous, POC (i-STAT) 04/21/2023 13:06:00 22.7 Below low normal 23.0-31.0 (mmol/L) Final Performing Location [facility] [place] [address] [facility] [address]
--- OUTSIDE RECORDS SUMMARY | 2023-10-05 21:36 | External Medical Summary ---
Author Name Unknown Address Unknown Organization K01:[place]ORY [facility] [place] [address] [facility] Laboratory Report Ordering Provider Test Date Status SINGER MACIE 04/21/2023 13:05:00 Final Observation Date Value Abnormality Reference (Units ) Status Bacteria identified in Specimen by Culture 04/21/2023 13:05:00 No growth Final Test: Culture, Blood
Sp ecimen Source: Blood, Venous
Specimen Type: Blood
Specimen Date: 04/21/2023 1:05 PM
Result Date: 04/26/2023 2:01 PM
Result Status: Final result
Resulting Lab: LABORATORY [facility]
[address]
[place] [address]

CULTURE

No growth

null Performing Location LABORATORY [facility] [place] [address] [place] [address]
--- OUTSIDE RECORDS SUMMARY | 2023-10-05 21:36 | External Medical Summary ---
Author Name Unknown Address Unknown Organization : Laboratory Report Ordering Provider Test Date Status BETSEY ELIZALDE 04/13/2023 15:06:30 Final Observation Date Value Abnormality Reference (Units ) Status Glucose Point of Care 04/13/2023 15:06:30 311 Above high normal 70-120 (mg/dL) Final Performing Location
--- OUTSIDE RECORDS SUMMARY | 2023-10-05 21:36 | External Medical Summary ---
Author Name Unknown Address Unknown Organization : Laboratory Report Ordering Provider Test Date Status OBEY RUTLEDGE 04/21/2023 15:14:54 Final Observation Date Value Abnormality Reference (Units ) Status Glucose Point of Care 04/21/2023 15:14:54 263 Above high normal 70-120 (mg/dL) Final Performing Location
--- OUTSIDE RECORDS SUMMARY | 2023-10-05 21:36 | External Medical Summary ---
Author Name Unknown Address Unknown Organization K01:LABORATORY [facility] - [address] [facility] [address] Laboratory Report Ordering Provider Test Date Status SINGER MACIE 04/21/2023 13:06:00 Final Observation Date Value Abnormality Reference (Units ) Status Phosphate 04/21/2023 13:06:00 2.9 2.5-4.8 (m g/dL) Final Performing Location LAB[facility]ATORY [facility] - [address] [facility] [address]
--- OUTSIDE RECORDS SUMMARY | 2023-10-05 21:36 | External Medical Summary ---
Author Name Unknown Address Unknown Organization K01:LABORATORY [facility] [place] - [address] [facility] [address] Laboratory Report Ordering Provider Test Date Status SINGER MACIE 04/21/2023 13:06:00 Final Observation Date Value Abnormality Reference (Units ) Status BUN 04/21/2023 13:06:00 22 Above high normal 6-20 (mg/dL) Final Creatinine 04/21/2023 13:06:00 1.3 Above high normal 0.6-1.2 (mg/dL) Final Glomerular filtration rate/1.73 sq M.predicted [Volume Rate/Area] in Serum, Plasma or Blood by Creatinine-based formula (CKD-EPI) 04/21/2023 13:06:00 65 >=60 (mL/min) Final eGFR is calculated based on the CKD-EPI 2020 equation SODIUM 04/21/2023 13:06:00 135 135-146 (m mol/L) Final Potassium 04/21/2023 13:06:00 4.1 3.5-5.1 (m mol/L) Final Cl 04/21/2023 13:06:00 102 98-107 (mm ol/L) Final CO2 04/21/2023 13:06:00 21 Below low normal 22- 32 (mmol/L) Final Anion gap 04/21/2023 13:06:00 12 7-15 (mmol /L) Final Glucose 04/21/2023 13:06:00 407 Above high normal 70 -120 (mg/dL) Final Albumin 04/21/2023 13:06:00 3.9 3.8-5.0 (g /dL) Final AST (Aspartate aminotransferase) 04/21/2023 13:06:00 20 10-50 (U/L) Fin al Alk Phos 04/21/2023 13:06:00 98 35-130 (U/ L) Final Bilirubin, Total 04/21/2023 13:06:00 0.5 <=1 .2 (mg/dL) Final Calcium 04/21/2023 13:06:00 9.2 8.4-10.2 ( mg/dL) Final Protein 04/21/2023 13:06:00 6.9 6.0-8.3 (g /dL) Final ALT (Alanine aminotransferase) 04/21/2023 13:06:00 27 10-50 (U/L) Jacob swan Performing Location LABORATORY [facility] [place] - [address] [facility] [address]
--- OUTSIDE RECORDS SUMMARY | 2023-10-05 21:36 | External Medical Summary ---
Author Name Unknown Address Unknown Organization K01:[place] [facility] [place] [address] [facility] [address] Laboratory Report Ordering Provider Test Date Status ABDIRAHMAN CHIN 04/13/2023 13:20:00 Final Observation Date Value Abnormality Reference (Units ) Status Troponin T 04/13/2023 13:20:00 17 <=22 (ng/ L) Final Performing Location [place] [facility] [place] [address] [facility] [address]
--- OUTSIDE RECORDS SUMMARY | 2023-10-05 21:36 | External Medical Summary ---
Author Name Unknown Address Unknown Organization K01:LABORATORY [facility] [place] - [address] [facility] [address] Laboratory Report Ordering Provider Test Date Status SINGER MACIE 04/21/2023 13:06:00 Final Observation Date Value Abnormality Reference (Units ) Status Bilirubin, Direct 04/21/2023 13:06:00 <0.2 0. 0-0.3 (mg/dL) Final Performing Location LABORATORY C - [address] [facility] [address]
--- OUTSIDE RECORDS SUMMARY | 2023-10-05 21:36 | External Medical Summary ---
Author Name Unknown Address Unknown Organization K01:LABORATORY [facility] - [address] [facility] [address] Laboratory Report Ordering Provider Test Date Status SINGER MACIE 04/21/2023 13:06:00 Final Observation Date Value Abnormality Reference (Units ) Status Amylase 04/21/2023 13:06:00 58 28-100 (U/ L) Final Performing Location LAB[facility]ATORY [facility] - [address] [facility] [address]
--- OUTSIDE RECORDS SUMMARY | 2023-10-05 21:36 | External Medical Summary ---
Author Name Unknown Address Unknown Organization K01:LABORATORY [facility] [place] - [address] [facility] [address] Laboratory Report Ordering Provider Test Date Status SINGER MACIE 04/21/2023 13:06:00 Final Observation Date Value Abnormality Reference (Units ) Status WBC, Total 04/21/2023 13:06:00 6.04 4.00-10.80 (K/uL) Final RBC 04/21/2023 13:06:00 4.11 4.50-5.25 (M/uL) Final Hemoglobin 04/21/2023 13:06:00 12.4 Below low normal 14.0-16.8 (g/dL) Final HCT 04/21/2023 13:06:00 36.2 Below low normal 40.0-48.4 (%) Final MCV 04/21/2023 13:06:00 88.1 82.0-99.5 (fL) Final MCH 04/21/2023 13:06:00 30.2 27.0-34.0 (pg) Final MCHC 04/21/2023 13:06:00 34.3 32.0-36.0 (g/dL) Final RDW 04/21/2023 13:06:00 12.0 11.5-15.5 (%) Final Platelets 04/21/2023 13:06:00 141 140-400 (K/uL) Final MPV 04/21/2023 13:06:00 12.1 6.6-11.1 (fL) Final Nucleated erythrocytes/100 leukocytes [Ratio] in Blood by Automated count 04/21/2023 13:06:00 0 <=0 (/100 WBCs) Final Performing Location LABORATORY [facility] [place] - [address] [facility] [address]
--- OUTSIDE RECORDS SUMMARY | 2023-10-05 21:36 | External Medical Summary ---
Author Name Unknown Address Unknown Organization K01:LABORATORY [facility] - [address] [facility] [address] Laboratory Report Ordering Provider Test Date Status SINGER MACIE 04/21/2023 13:06:00 Final Observation Date Value Abnormality Reference (Units ) Status Magnesium 04/21/2023 13:06:00 1.8 1.5-2.6 (m g/dL) Final Performing Location LABORATORY [facility] - [address] [facility] [address]
--- OUTSIDE RECORDS SUMMARY | 2023-10-05 21:36 | External Medical Summary ---
Author Name Unknown Address Unknown Organization K01:[place] [facility] [place] [address] [facility] [address] Laboratory Report Ordering Provider Test Date Status ABDIRAHMAN CHIN 04/13/2023 12:28:00 Final Observation Date Value Abnormality Reference (Units ) Status WBC, Total 04/13/2023 12:28:00 4.69 4.00-10.8 0 (K/uL) Final RBC 04/13/2023 12:28:00 4.32 4.50-5.25 (M/uL) Final Hemoglobin 04/13/2023 12:28:00 12.8 Below low normal 14 .0-16.8 (g/dL) Final HCT 04/13/2023 12:28:00 38.0 Below low normal 40. 0-48.4 (%) Final MCV 04/13/2023 12:28:00 88.0 82.0-99.5 (fL) Final MCH 04/13/2023 12:28:00 29.6 27.0-34.0 (pg) Final MCHC 04/13/2023 12:28:00 33.7 32.0-36.0 (g/dL) Final RDW 04/13/2023 12:28:00 11.9 11.5-15.5 (%) Final Platelets 04/13/2023 12:28:00 146 140-400 (K /uL) Final MPV 04/13/2023 12:28:00 11.5 6.6-11.1 ( fL) Final Performing Location [place] [facility] [place] [address] [facility] [address]
--- OUTSIDE RECORDS SUMMARY | 2023-10-05 21:36 | External Medical Summary ---
Author Name Unknown Address Unknown Organization K01:LABORATORY [facility] [place] - [address] [facility] [address] Laboratory Report Ordering Provider Test Date Status SINGER MACIE 04/21/2023 12:59:00 Final Observation Date Value Abnormality Reference (Units ) Status Color of Urine by Auto 04/21/2023 12:59:00 Yellow Colorless, Light Yellow, Yellow, Dark Yellow Final Clarity, Urine 04/21/2023 12:59:00 Clear Clear Final Glucose [Mass/volume] in Urine by Automated test strip 04/21/2023 12:59:00 >=1000 Abnormal Negative (mg/dL) Final Bilirubin.total [Presence] in Urine by Automated test strip 04/21/2023 12:59:00 Negative Negative Final Ketones [Mass/volume] in Urine by Automated test strip 04/21/2023 12:59:00 Negative Negative (mg/dL) Final Specific gravity, Urine 04/21/2023 12:59:00 1.033 Above high normal 1.003-1.030 Final Hemoglobin [Presence] in Urine by Automated test strip 04/21/2023 12:59:00 Negative Negative Final pH, Urine 04/21/2023 12:59:00 6.0 5.0-7.5 (Units) Final Protein [Mass/volume] in Urine by Automated test strip 04/21/2023 12:59:00 30 Abnormal Negative (mg/dL) Final Urobilinogen [Mass/volume] in Urine by Automated test strip 04/21/2023 12:59:00 Normal Normal (mg/dL) Final Nitrite [Presence] in Urine by Automated test strip 04/21/2023 12:59:00 Negative Negative Final Leukocyte esterase [Presence] in Urine by Automated test strip 04/21/2023 12:59:00 Negative Negative Final RBC, Urine 04/21/2023 12:59:00 0-2 0-2 (/HPF) Final WBC, Urine 04/21/2023 12:59:00 0-2 0-2 (/HPF) Final Bacteria [#/area] in Urine sediment by Microscopy high power field 04/21/2023 12:59:00 0-25 0-25 (/HPF) Final Hyaline casts, Urine 04/21/2023 12:59:00 1-4 Abnormal None (/LPF) Final CULTURE, URINE - [facility] 04/21/2023 12:59:00 Final Culture not indicated by uri nalysis results Performing Location LABORATORY [facility] [place] - [address] [facility] [address]
--- OUTSIDE RECORDS SUMMARY | 2023-10-05 21:36 | External Medical Summary ---
Author Name Unknown Address Unknown Organization K01:LABORATORY [facility] [place] - [address] [facility] [address] Laboratory Report Ordering Provider Test Date Status ABDIRAHMAN CHIN 04/13/2023 12:28:00 Final Observation Date Value Abnormality Reference (Units ) Status SYNC LEUKOCYTES IN BLOOD BY AUTOMATED COUNT 04/13/2023 12:28:00 4.69 4.00-10.80 (K/uL) Final Segs 04/13/2023 12:28:00 36.0 Below low normal 40.0-75.0 (%) Final Lymphs % 04/13/2023 12:28:00 51.0 Above high normal 18.0-42.0 (%) Final Monos 04/13/2023 12:28:00 7.0 1.0-11.0 (%) Final Eosinophils 04/13/2023 12:28:00 4.9 0.0-6.0 (%) Final Basos 04/13/2023 12:28:00 0.9 0.0-2.0 (%) Final Immature Granulocyte, Percent 04/13/2023 12:28:00 0.2 0.0-2.0 (%) Final Absolute Segs 04/13/2023 12:28:00 1.69 Below low normal 1.80-7.70 (K/uL) Final Lymphs, absolute 04/13/2023 12:28:00 2.39 1.00-4.80 (K/ul) Final Monos, Abs 04/13/2023 12:28:00 0.33 0.00-1.10 (K/uL) Final Eos, Abs 04/13/2023 12:28:00 0.23 0.00-0.70 (K/uL) Final Basos, Abs 04/13/2023 12:28:00 0.04 0.00-0.20 (K/uL) Final Immature Granulocytes, Number 04/13/2023 12:28:00 0.01 0.00-0.20 (K/uL) Final Performing Location LABORATORY [facility] [place] - [facility] [address] [facility] [address]
--- OUTSIDE RECORDS SUMMARY | 2023-10-05 21:36 | External Medical Summary ---
Author Name Unknown Address Unknown Organization K01:[place] [facility] [place] [address] [facility] [address] Laboratory Report Ordering Provider Test Date Status ABDIRAHMAN CHIN 04/13/2023 12:28:00 Final Observation Date Value Abnormality Reference (Units ) Status Troponin T 04/13/2023 12:28:00 17 <=22 (ng/ L) Final Performing Location [place] [facility] [place] [address] [facility] [address]
--- OUTSIDE RECORDS SUMMARY | 2023-10-05 21:36 | External Medical Summary ---
Author Name Unknown Address Unknown Organization K01:[place] [facility] [place] [address] [facility] [address] Laboratory Report Ordering Provider Test Date Status SINGER MACIE 04/21/2023 13:06:00 Final Observation Date Value Abnormality Reference (Units ) Status SYNC LEUKOCYTES IN BLOOD BY AUTOMATED COUNT 04/21/2023 13:06:00 6.04 4.00-10.80 (K/uL) Final Segs 04/21/2023 13:06:00 55.1 40.0-75.0 (%) Final Lymphs % 04/21/2023 13:06:00 31.8 18.0-42.0 (%) Final Monos 04/21/2023 13:06:00 6.6 1.0-11.0 (%) Final Eosinophils 04/21/2023 13:06:00 5.6 0.0-6.0 (%) Final Basos 04/21/2023 13:06:00 0.7 0.0-2.0 (%) Final Immature Granulocyte, Percent 04/21/2023 13:06:00 0.2 0.0-2.0 (%) Final Absolute Segs 04/21/2023 13:06:00 3.33 1.80-7.70 (K/uL) Final Lymphs, absolute 04/21/2023 13:06:00 1.92 1.00-4.80 (K/ul) Final Monos, Abs 04/21/2023 13:06:00 0.40 0.00-1.10 (K/uL) Final Eos, Abs 04/21/2023 13:06:00 0.34 0.00-0.70 (K/uL) Final Basos, Abs 04/21/2023 13:06:00 0.04 0.00-0.20 (K/uL) Final Immature Granulocytes, Number 04/21/2023 13:06:00 0.01 0.00-0.20 (K/uL) Final Performing Location [place] [facility] [place] [address] [facility] [address]
--- OUTSIDE RECORDS SUMMARY | 2023-10-05 21:36 | External Medical Summary ---
Author Name Unknown Address Unknown Organization : Laboratory Report Ordering Provider Test Date Status JACKIE DAO 04/21/2023 14:07:36 Final Observation Date Value Abnormality Reference (Units ) Status Glucose Point of Care 04/21/2023 14:07:36 307 Above high normal 70-120 (mg/dL) Final Performing Location
--- OUTSIDE RECORDS SUMMARY | 2023-10-05 21:36 | External Medical Summary ---
Author Name Unknown Address Unknown Organization K01:LABORATORY [facility] [place] [address] [place] [id number] Laboratory Report Ordering Provider Test Date Status SINGER MACIE 04/21/2023 13:06:00 Final Observation Date Value Abnormality Reference (Units ) Status Bacteria identified in Specimen by Culture 04/21/2023 13:06:00 No growth Final Test: Culture, Blood (site 2)
Specimen Source: Blood, Venous
Specimen Type: Blood
Specimen Date: 04/21/2023 1:06 PM
Result Date: 04/26/2023 2:01 PM
Result Status: Final result
Resulting Lab: LABORATORY [facility] [place]
[address]
[place] [address]

CULTURE

No growth

null Performing Location LABORATORY [facility] [place] [address] [facility] [address]
--- OUTSIDE RECORDS SUMMARY | 2023-10-05 21:36 | External Medical Summary ---
Author Name Unknown Address Unknown Organization K01:LABORATORY [facility] [place] - [address] [facility] [address] Laboratory Report Ordering Provider Test Date Status SINGER MACIE 04/21/2023 13:09:00 Final Observation Date Value Abnormality Reference (Units ) Status Lactic Acid 04/21/2023 13:09:00 2.6 Above high normal 0.4-2.0 (mmol/L) Final Performing Location LABORATORY [facility] [place] - [address] [facility] [address]
--- OUTSIDE RECORDS SUMMARY | 2023-10-05 21:36 | External Medical Summary ---
Author Name Unknown Address Unknown Organization K01:LABORATORY [facility] [place] - [address] [facility] [address] Laboratory Report Ordering Provider Test Date Status ABDIRAHMAN CHIN 04/13/2023 12:28:00 Final Observation Date Value Abnormality Reference (Units ) Status BUN 04/13/2023 12:28:00 22 Above high normal 6-20 (mg/dL) Final Creatinine 04/13/2023 12:28:00 1.03 0.6-1.2 (mg/dL) Final Glomerular filtration rate/1.73 sq M.predicted [Volume Rate/Area] in Serum, Plasma or Blood by Creatinine-based formula (CKD-EPI) 04/13/2023 12:28:00 83 >=60 (mL/min) Final eGFR is calculated based on the CKD-EPI 2020 equation SODIUM 04/13/2023 12:28:00 134 Below low normal 135 -146 (mmol/L) Final Potassium 04/13/2023 12:28:00 4.6 3.5-5.1 (m mol/L) Final Cl 04/13/2023 12:28:00 99 98-107 (mm ol/L) Final CO2 04/13/2023 12:28:00 22 22-32 (mmo l/L) Final Anion gap 04/13/2023 12:28:00 13 7-15 (mmol /L) Final Glucose 04/13/2023 12:28:00 511 Above up per panic limits 70-120 (mg/dL) Final Albumin 04/13/2023 12:28:00 3.9 3.8-5.0 (g /dL) Final AST (Aspartate aminotransferase) 04/13/2023 12:28:00 17 10-50 (U/L) Fin al Alk Phos 04/13/2023 12:28:00 91 35-130 (U/ L) Final Bilirubin, Total 04/13/2023 12:28:00 0.8 <=1 .2 (mg/dL) Final Calcium 04/13/2023 12:28:00 10.2 8.4-10.2 ( mg/dL) Final Protein 04/13/2023 12:28:00 7.1 6.0-8.3 (g /dL) Final ALT (Alanine aminotransferase) 04/13/2023 12:28:00 21 10-50 (U/L) Jacob swan Performing Location LABORATORY [facility] [place] - [address] [facility] [address]
[2023-10-05] MEDS: INSULIN ASPART PER UNIT CHARGE SC SCH (22:24)
[2023-10-05] MEDS: LANTUS PER UNIT CHARGE SQ SCH (22:25)
[2023-10-06] MEDS: MELATONIN 3 MG TAB PO PRN (00:19)
[2023-10-06 07:18] LABS: Mean Corpuscular Hemoglobin 22.3 pg (25.0-34.0); Mean Corpuscular Hgb Conc 30.8 g/dL (32.0-36.0); Mean Corpuscular Volume 72.4 fL (80.0-100.0); Mean Platelet Volume 11.8 fL (9.4-12.4); Platelet Count 138 K/uL (130-400); RDW Coefficient of Variation 19.3 % (11.5-14.5); RDW Standard Deviation 50.7 fL (36.4-46.3); Red Blood Count 3.59 M/uL (4.70-6.10)
[2023-10-06 07:27] LABS: BUN Creatinine Ratio 17.7 (10-20); Basophils # (auto) 0.03 K/uL (0.00-0.20); Basophils % (auto) 0.6 %; Calcium 8.1 mg/dl (8.6-10.3); Creatinine Clr Calc Pharmacy 100.9 ml/min; Eosinophils # (auto) 0.19 K/uL (0.00-0.50); Est GFR (African American) 113.1 ml/min; Est GFR (Non-African American) 97.6 ml/min; Immature Granulocytes # (auto) 0.01 K/uL (0.01-0.20); Immature Granulocytes % (auto) 0.2 %; Lymphocytes # (auto) 2.02 K/uL (1.20-3.40); Microcytosis Present; Monocytes # (auto) 0.31 K/uL (0.11-0.59); Monocytes % (auto) 6.6 %; Neutrophils # (auto) 2.14 K/uL (1.40-6.50); Neutrophils % (auto) 45.6 %; Ovalocytes 1+; Polychromasia 1+; Potassium 3.5 mmol/L (3.5-5.1); Reticulocyte % 1.09 % (0.50-2.00)
[2023-10-06 07:49] LABS: Folate (Folic Acid),Ser orPlas > 22.30 ng/ml (>5.38)
[2023-10-06 07:50] LABS: Vitamin B12 218 pg/ml (180-914)
[2023-10-06 08:54] LABS: Estimated Average Glucose 283 mg/dl; Hemoglobin A1C 11.5 % (4.5-5.6)
[2023-10-06 10:23] LABS: Ferritin 4.1 ng/ml (8-388)
[2023-10-06] MEDS: ACETAMINOPHEN 325 MG TAB PO PRN (10:46)
--- NOTE | 2023-10-06 10:57 | Electrocardiogram Report ---
Test Reason : Blood Pressure : / mmHG Vent. Rate : 063 BPM Atrial Rate : 063 BPM P-R Int : 192 ms QRS Dur : 138 ms QT Int : 454 ms P-R-T Axes : 044 -42 037 degrees QTc Int : 464 ms Sinus rhythm with Premature supraventricular complexes Left axis deviation Right bundle branch block Abnormal ECG No previous ECGs available Confirmed by Fernandez Dixon ([id number]) on 10/06/2023 10:57:06 AM Referred By: REFERRED SELF Confirmed By:Austin Dixon
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
== END 2023-10-06 14:11 | disposition left against medical advice (07) ==
LOC: EDSEX → ED 14:56 → MERGE 14:56 → EDINP 14:56 → SUATTDRO 18:46 → EDINP 10-06 00:45
DX: Z82.49 Family history of ischemic heart disease and other diseases of the circulatory system; R55 Syncope and collapse; N40.1 Benign prostatic hyperplasia with lower urinary tract symptoms; R74.02 Elevation of levels of lactic acid dehydrogenase [LDH]; D50.9 Iron deficiency anemia, unspecified; R05.9 Cough, unspecified; K21.9 Gastro-esophageal reflux disease without esophagitis; R07.9 Chest pain, unspecified; E11.65 Type 2 diabetes mellitus with hyperglycemia; Z79.01 Long term (current) use of anticoagulants; Z79.899 Other long term (current) drug therapy; N13.8 Other obstructive and reflux uropathy; R09.89 Other specified symptoms and signs involving the circulatory and respiratory systems; E03.9 Hypothyroidism, unspecified; Z79.4 Long term (current) use of insulin; Z86.711 Personal history of pulmonary embolism; E78.5 Hyperlipidemia, unspecified; Z79.82 Long term (current) use of aspirin; Z79.84 Long term (current) use of oral hypoglycemic drugs